=== PATIENT | female | born 1955 | race Caucasian/White ===

== ENCOUNTER 2016-11-21 03:12 | Inpatient (IN) | payer OTHER ==
[2016-11-21] VITALS (14 sets, daily range): BP systolic 67–125; BP diastolic 34–65; PULSE 88–115; RESP 12–22; O2SAT 76–98
[~2016-11-21] VITALS: Ht 170.2 cm; Wt 101.9 kg
[~2016-11-21 03:12] MED LIST: ALBU8.5H2 IH; ASPI-973 PO; Albuterol/Ipratropium NEB; FURO-129 PO; HYDR-4003 PO; HYDR25TA4 PO; INSU100I18 SUBQ; IPRA3AMP IH; LEVO150T5 PO; MS15TCR PO; MS30TCR PO; OMEP20TA24 PO; POTA-62 PO; PRE20 PO; SIMV80TA4 PO
--- NOTE | 2016-11-21 03:40 | ED.REPORT ---
HPI-Dyspnea / Wheezing Date of Service Nov 21, 2016 ED Provider: Blane Goldberg MD Pt is a 61 year old female with a hx of COPD, DM, HTN, hyperlipidemia, CABG and a hiatal hernia presenting to the ED complaining of dyspnea onset just prior to arrival. Her reports confusion, low O2 and low BP. Associated symptoms include headache and abdominal distention. Denies other symptoms at this time. Nursing Notes Stated Complaint: LOW BLOOD PRESSURE,LOW OXYGEN,CONFUSION Chief Complaint: Respiratory Distress Nursing Notes Reviewed: Yes Allergies: Coded Allergies: TAPE (Verified Allergy, Mild, Rash, 09/05/14) montelukast sodium (Verified Allergy, Mild, Agitation, 09/05/14) oxycodone HCl (Verified Allergy, Mild, Rash,Itching,, 09/05/14) PATIENT TAKES MORPHINE AND HYDROCODONE AT HOME Scheduled Amlodipine (Amlodipine) 2.5 Mg Tablet 2.5 MG PO DAILY Aspirin (Aspirin) 81 Mg Tablet.dr 81 MG PO DAILY Atorvastatin Calcium (Atorvastatin Calcium) 20 Mg Tablet 20 MG PO HS Hydrochlorothiazide (Hydrochlorothiazide) 25 Mg Tablet 50 MG PO DAILY Insulin Lispro (HumaLOG U100 Insulin Pen) 100 Unit/1 Ml Insuln.pen 10 UNIT SUBQ TID-INSULIN Blood Sugar Lispro Correction <151 0 units 151-175 1 unit 176-200 2 units 201-225 3 units 226-250 4 units 251-275 5 units 276-300 6 units 301-325 7 units 326-350 8 units 351-375 9 units 376-400 10 units >400 12 units Check blood sugars before meals and at bedtime. Use correction factor only before meals. Ipratropium/Albuterol Sulfate (Iprat-Albut 0.5-3(2.5) mg/3 mL Inhalant Soln) 3 Ml Ampul.neb 3 ML IH Q6 Levothyroxine (Levothyroxine) 175 Mcg Tablet 175 MCG PO DAILY Lisinopril (Lisinopril) 40 Mg Tablet 40 MG PO DAILY Morphine Sulfate ER (MS Contin) 15 Mg Tablet.er 15 MG PO QAM Morphine Sulfate ER (MS Contin) 30 Mg Tablet.er 30 MG PO Q12 Scheduled PRN ([Albuterol/Ipratropium]) 3 ML NEBU 3 ML NEB Q4 PRN PRN dyspnea Albuterol HFA (Proair HFA) 8.5 Gm Hfa.aer.ad 2 PUFFS IH Q4 PRN PRN For Shortness of Breath Hydrocodone-Acetaminophen 5-325 mg (Hydrocodone-Acetaminophen 5-325 mg) 1 Each Tablet 1 EACH PO Q8 PRN PRN For Pain Promethazine (Promethazine) 25 Mg Tablet 1 TABLET PO Q6H PRN PRN For Nausea/ Vomiting General Time Seen by MD: 03:29 Chief Complaint Shortness of breath Hx Obtained From: Patient, Spouse Arrived By: Walk-in Sudden in Onset?: Yes Onset Occurred: Just prior to arrival Symptom Duration: Since onset Quality: Painful Severity: Current: Mild Severity: Maximum: Moderate Recent Healthcare: No recent doctor visit, No recent hospitalization Similar Sx Previous: No Past Medical History Past Medical History Sleep apnea Hiatal hernia Reports: Asthma, COPD, Diabetes mellitus, GERD, Hyperlipidemia, Hypertension Past Surgical History Multiple knee repairs Reports: CABG, Hysterectomy Smoking History Current Every Day Smoker Social History Alcohol Use: "Social" Ambulatory Status Independent Review of Systems Review of Systems Note: Abdominal distention Constitutional: Denies: Weakness - generalized Respiratory: Reports: Shortness of breath Complete sys rev & neg: except as marked. GI: Denies: Vomiting Neurologic: Reports: Confusion, Headache Physical Exam Initial Vital Signs Vital Signs (First) Date Time Temp Pulse Resp B/P Pulse Ox O2 Delivery O2 Flow Rate FiO2 11/21/16 03:15 38.1 115 22 121/65 76 Room Air 11/21/16 03:45 4 Initial VS: Reviewed, Vital signs abnormal Head / Eyes: Atraumatic, Normocephalic, PERRL ENT: Mucous membranes moist, Conjunctiva normal, No scleral icterus Skin: Warm, Dry, No cyanosis Neurologic: Alert, Oriented, Nonfocal Psychiatric: Mood/affect normal, Behavior normal, Normal thought content General/Constitutional: Awake Neck: Atraumatic, Supple Respiratory / Chest: Breath sounds NL, Breath sounds = bilat, No respiratory distress, No rales, No rhonchi, No wheezing, No retractions, No stridor Cardiovascular: Heart rate NL, Regular rhythm, Heart sounds NL, Peripheral circulation NL Abdomen: Atraumatic, Non-tender Distended tympanitic abdomen. Non reducible umbilical hernia. Interpretation & Diagnostics Interpretation & Diagnostics: CT ABDOMEN AND PELVIS KUB: IMPRESSION: Constellation of findings highly concerning for acute Emphysematous choledochocystitis in the absence of recent instrumentation. Biliary dilation. Small amount of free fluid. Correlation with sonogram is advised. Other findings above. This report was transmitted to the emergency room at 11/21/2016 - 5:25:46 AM PDT. Lab Results Interpretation Result Diagram: 11/21/16 0340 11/21/16 0340 Test 11/21/16 03:40 White Blood Count 11.7th/mm3 (3.8-10.1) Red Blood Count 5.98mil/mm3 (3.90-5.20) Hemoglobin 14.8g/dL (12.0-15.6) Hematocrit 48.1% (35.0-46.0) Mean Corpuscular Volume 80.4fL (81-100) Mean Corpuscular Hemoglobin 24.7pg (27.0-35.0) Mean Corpuscular Hemoglobin Concent 30.8% (32.0-37.0) Red Cell Distribution Width 19.6% (12.3-15.4) Platelet Count ramesh/L (150-400) Neutrophils (%) (Auto) 88.9% (40-74) Lymphocytes (%) (Auto) 3.5% (14-46) Monocytes (%) (Auto) 4.3% (4-12) Eosinophils (%) (Auto) 2.6% (0-5) Basophils (%) (Auto) 0.2% (0-3) D-Dimer 5.90mg/L FEU (<0.50) Sodium Level 134mEq/L (134-144) Potassium Level 3.6mEq/L (3.5-5.2) Chloride Level 86mEq/L (97-108) Carbon Dioxide Level 28mmol/L (18-29) Blood Urea Nitrogen 82mg/dL (8-27) Creatinine 4.70mg/dL (0.57-1.00) Estimat Glomerular Filtration Rate 14mL/min (>59) Glucose Level 221mg/dL (60-99) Lactic Acid Level 1.3mmol/L (0.4-2.0) Calcium Level 9.4mg/dL (8.5-10.1) Magnesium Level 1.9mg/dL (1.6-2.6) Total Bilirubin 0.9mg/dL (0.0-1.2) Aspartate Amino Transf (AST/SGOT) 115U/L (0-50) Alanine Aminotransferase (ALT/SGPT) 60U/L (0-32) Alkaline Phosphatase 179U/L (25-165) Troponin T 0.010ug/L (0.0-0.011) Pro-B-Type Natriuretic Peptide 579pg/mL (0-287) Total Protein 7.8g/dL (6.4-8.4) Albumin 3.6g/dL (3.4-5.0) Hold Walker Top Tube Received (Received) Lab Results Interpretation: Elevated white blood count, acutely elevated BUN/creatinine, d-dimer 5.9, mildly elevated transaminases and nonfasting blood glucose. ECG Interpretation ECG Interpretation: Sinus tachycardia. Probable left atrial enlargement. Time: 03:27 Interpreted by: ED physician Abnormal Rate: 110 (109) X-Ray Chest Interpretation Chest Xray Interpretation: Normal. View: Portable, 1 view Interpretation / Wet Read by: Wet read ED physician Re-Eval/Medical Decision Med Decision/Clinical Course 61-year-old female who presents with hypotension, confusion, and hypoxemia. IV access was obtained, blood cultures done, and hydration started. Chest x-ray was negative for pneumonia. She was found to be in acute renal failure. Her d- dimer was elevated, but we were unable to do a chest angiogram because of her creatinine. Plain CT of the belly showed that she had severe acute cholecystitis. Her case was discussed with Dr. Nair, Dr. Aicha Pedraza, Dr. Venu Sheriff, Dr. See, and Dr. Carrillo. The patient will be admitted to the ICU and stabilized for operative repair. Re-Evaluation/Progress : Time of Eval: 05:49 Patient Status: Condition improved Re-Evaluation/Progress Note: Discussed CT results with the , and plan for surgery. He understands and agrees. Consultation #1: Referral / Consult Name: Ash Nair MD Call Returned at: 05:39 Note: GI. Call Dr. Pedraza the surgeon. Consultation #2: Referral / Consult Name: Juan Pedraza MD Consulted With: Surgeon Call Returned at: 05:43 Note: Admit her to CCU and she will need emergency surgery. Consultation #3: Referral / Consult Name: Christian See MD Consulted With: Hospitalist Call Returned at: 05:51 Director Of [employer]: Will see patient, Agrees with plan, Accepts admit Consultation #4: Referral / Consult Name: Ash Nair MD Call Returned at: 05:55 Note: GI. Discussed CT results. Consultation #5: Referral / Consult Name: Sean Mcneil MD Consulted With: Nephrology Call Returned at: 05:58 Director Of [employer]: Will see patient Consultation #6: Referral / Consult Name: Pal Ling MD Call Returned at: 06:13 Note: Radiologist. Clarifying that the major dx is acute cholecystitis. Counseled Regarding: Diagnosis, Lab results, Need for follow-up, When/why to return to ED Discharge & Departure Disposition: ADMITTED TO HOSPITAL Discharge Condition All VS Reviewed: Yes Condition: Improved Referrals: Mary Sierra PA-C (PCP) Crit Care Except Billable Proc Time Spent: 75-104 minutes Services Performed: Patient management by me, Time spent at bedside, Reviewing test results, Reviewing imaging, Discussing patient care, Documentation in record Critical Care Notes: Acutely ill patient with acute cellulitis with sepsis, acute renal failure, and elevated d-dimer. She was cultured, hydrated, and admitted to the CCU. Scribe Attestation Portions of this note were transcribed by Becka Capellan. I, Dr. Goldberg personally performed the history, physical exam and medical decision-making; I reviewed and confirmed the accuracy of the information in the transcribed note. Signed by: Ramon Farrell, 11/21/2016 and 0615. copies to: Mary Sierra PA-C, Howard L MD Nov 21, 2016 03:40 BECKA CAPELLAN Nov 21, 2016 03:49
[2016-11-21] MEDS ORDERED: Albuterol 2.5 mg/3 mL Inhalation Solution NEB ONE (03:47)
[2016-11-21] MEDS ORDERED: Albuterol-Ipratropium 3 mL Inhalation Solution ONE (03:47)
[2016-11-21 03:56] LABS: BASOPHILS % (AUTO) 0.2 % (0-3); EOSINOPHILS % (AUTO) 2.6 % (0-5); MONOCYTES % (AUTO) 4.3 % (4-12); Mean Corpuscular Hemoglobin 24.7 pg (27.0-35.0); Mean Corpuscular Volume 80.4 fL (81-100); NEUTROPHILS % (AUTO) 88.9 % (40-74)
[2016-11-21 04:23] LABS: TROPONIN T 0.01 ug/L (0.0-0.011)
[2016-11-21] MEDS ORDERED: 0.9% Sodium Chloride 1,000 ML IV ONE ×2 (04:35→06:10)
[2016-11-21 04:43] LABS: Magnesium 1.9 mg/dL (1.6-2.6)
[2016-11-21] MEDS ORDERED: Piperacillin-Tazo 3.375 Gm Inj 3.375 GM in Dextrose 5% Minibag Plus 50 ML IV ONE (05:40)
[2016-11-21] MEDS ORDERED: Alum-Mag Hydrox-Simeth 30 mL Suspension PO PRN (05:55)
[2016-11-21] MEDS ORDERED: Ondansetron 2 mg/mL 2 mL Inj IVPUSH PRN (05:55)
[2016-11-21] MEDS ORDERED: Polyethylene Glycol (PEG) 17 Gm Powder PO PRN (05:55)
[2016-11-21] MEDS ORDERED: Senna-Docusate 8.6-50 mg Tablet PO PRN (05:55)
--- NOTE | 2016-11-21 06:18 | DRSVH ---
PROCEDURE: CT ABDOMEN AND PELVIS WITHOUT CONTRAST ([id number]) INDICATIONS: abd distention and incarcerated hernia TECHNIQUE: Noncontrast 5 mm thick sections acquired from the diaphragms to the symphysis. 5 mm coronal and sagi ttal reformats were then performed. For radiation dose reduction, the following was used: automated exposure control, adjustment of mA and/or kV according to patient size. COMPARISON: None. FINDINGS: Image quality: Excellent. ABDOMEN: Lung bases: Lung base, there is scattered atelectasis. No pleural effusion. Solid organs: There is mild gas seen within the left lobe the liver, presumably pneumobilia versus p ortal venous gas. Unremarkable. There is distention of the gallbladder, with gallbladder wall thicken ing and pericholecystic inflammatory change. There is intraluminal and possible intramural gas, as we ll as cholelithiasis. Mild prominence of the extra hepatic bile ducts. There are adjacent vascular calcifications. The unen hanced pancreas and spleen are grossly unremarkable. Adrenal glands and kidneys also grossly unremark able. No hydronephrosis. Peritoneum and bowel: Unenhanced bowel loops demonstrate normal wall thickness and caliber. No free fluid or air. Normal appendix Nodes and vessels: No retroperitoneal or mesenteric adenopathy by size criteria. Aorta and inferior vena cava are normal in caliber. Miscellaneous: Fat-containing midline ventral hernia. PELVIS: Genitourinary: Bladder is decompressed. Miscellaneous: No inguinal hernias or adenopathy. Bones: No suspicious bony lesions. No vertebral body compression fractures. IMPRESSION: Findings consistent with acute emphysematous cholecystitis. Additionally, linear gas is seen within t he left lobe of the liver presumably pneumobilia (versus portal venous gas). Please correlate clinica lly. Cholelithiasis and pericholecystic inflammatory changes. Acute surgical consultation and managem ent is recommended. Fat containing midline ventral hernia. Critical findings were personally discussed by telephone with Dr. Goldberg in the emergency departmen t 11/21/16 0616 hours. Dictated by: Pal Ling M.D. on 11/21/2016 at 6:03 Approved by: Pal Ling M.D. on 11/21/2016 at 6:17
[2016-11-21] MEDS ORDERED: Glucose 40% Oral Gel 15 Gm Tube PO PRN (06:30)
[2016-11-21] MEDS ORDERED: Dextrose 10% 250 ML IV PRN ×2 (06:30→07:15)
--- NOTE | 2016-11-21 06:52 | NUR ---
Admit note: Pt arrived at 1835 per cart from ED. Pt is awake and alert with signs of SOB. Pt was moved over to bed with the use of a slide board. Monitor was applied showing sinus tach, and low BP with spo2 90-92% with 5L/M O2 per oxymask.
[2016-11-21] MEDS ORDERED: AMLO2.5T PO (07:07)
[2016-11-21] MEDS ORDERED: LISI40TA PO (07:07)
[2016-11-21] MEDS ORDERED: ATOR20TA65 PO (07:10)
[2016-11-21] MEDS ORDERED: PROM25TA14 PO (07:10)
[2016-11-21] MEDS ORDERED: LEVO175T5 PO (07:10)
[2016-11-21] MEDS ORDERED: Insulin Human REGular Inj 100 UNIT in 0.9% Sodium Chloride-Pha MIX 100 ML IV SCH (07:13)
[2016-11-21] MEDS ORDERED: Phenylephrine Inj 20,000 MCG in 0.9% Sodium Chloride 248 ML IV PRN (07:15)
[2016-11-21] MEDS ORDERED: Sodium Chloride LOK Flush 10 mL Syringe IVFLUSH PRN ×2 (07:15)
[2016-11-21] MEDS ORDERED: Norepineph 8,000 mCg/250 mL NS 8,000 MCG in IV Premix 1 EACH IV SCH (07:25)
--- NOTE | 2016-11-21 07:35 | DRSVH ---
PROCEDURE: X-RAY CHEST ONE VIEW, PORTABLE ([id number]) INDICATIONS: SOB TECHNIQUE: One view of the chest was acquired. COMPARISON: [facility], , CHEST 1VW (PORTABLE), 09/05/2014, 12:23. FINDINGS: Surgical changes and devices: vision specialist leads are seen over the chest. Lungs and pleura: No pleural effusions or pneumothorax. Lungs are clear. Mediastinum: Mediastinal contours appear normal. Heart size is normal. Bones and chest wall: No suspicious bony lesions. Overlying soft tissues appear unremarkable. IMPRESSION: Acute disease is seen in the portable upright chest. Dictated by: Jonatan Varner M.D. on 11/21/2016 at 7:29 Approved by: Jonatan Varner M.D. on 11/21/2016 at 7:34
--- NOTE | 2016-11-21 07:54 | PCM.HPMED ---
Subjective Date of Service Nov 21, 2016 Primary Provider: Admitting Physician: Christian See MD Primary Care Physician: Mary Sierra PA-C Attending Physician: Christian See MD Admit Status: From the Emergency Department, Admit to Yellow Team Chief Complaint: 61-year-old woman with T2DM, HTN, CKD, COPD, JOSEFA/CPAP presents with acute cholecystitis, septic shock History of Present Illness: She was in her usual state of health until 1 week ago. She experienced a self- limited gastrointestinal disturbance with nausea. Saw her primary care doctor. Took Tylenol and this resolved. One day prior to admission she experienced acute right upper quadrant pain and encephalopathy. This was associated with dyspnea. At the time of admission she is unable to give history. Her reports no cough, chest pain or other symptoms. Review of Systems: Patient is unable to comply with ROS Allergies Coded Allergies: TAPE (Verified Allergy, Mild, Rash, 09/05/14) montelukast sodium (Verified Allergy, Mild, Agitation, 09/05/14) oxycodone HCl (Verified Allergy, Mild, Rash,Itching,, 09/05/14) PATIENT TAKES MORPHINE AND HYDROCODONE AT HOME insulin lispro (Verified Allergy, Unknown, reports injection site reactions, 11/21/16) Home Medications Home medications: Albuterol when necessary Amlodipine 2.5 mg daily Aspirin 81 mg daily Atorvastatin 20 mg daily Hydrochlorothiazide 50 mg daily Hydrocodone 5/325 every 8 when necessary Lispro insulin 10 units 3 times a day DuoNeb inhaler every 6 hours when necessary Levothyroxine 175 g daily Lisinopril 40 mg daily MS Contin 15-30 mg daily Promethazine 25 mg by mouth when necessary PMH # Type II diabetes mellitus # Hypertension # CK D - history of short-term hemodialysis with a ZACK in the past # Obstructive airway disease # Chronic pain and opioid dependent # Obesity Family History does not know Social History Hx Alcohol Use: Yes (occasional) Hx Substance Use: No Hx Tobacco Use: No Smoking Status: Current Every Day Smoker Living Arrangement: with Family Exam Vital Signs Vital Sign - Last Date Time Temp Pulse Resp B/P Pulse Ox O2 Delivery O2 Flow Rate FiO2 11/21/16 07:16 37.2 101 17 109/37 93 OxyMask 6.00 Intake and Output 11/20/16 11/20/16 11/21/16 Cumulative From/Thru 15:00 23:00 07:00 11/21/16 03:15 - 11/21/16 06:50 Intake Total 2000 ml 2000 ml Balance 2000 ml 2000 ml Intake IV Total 2000 ml 2000 ml Exam General: Obese, plethoric, confused woman with mildly labored breathing HEENT: sclerae anicteric, oral mucosa moist Neck: Supple, no JVD Chest: Diffuse wheezing, no focal rales Cardiac: S1S2, no murmur Abdomen: BS reduced, non-tender Extremities: no edema; Neuro: A&O, cranial nerves symmetric, motor strength 5/5, coordination normal Lab and Diagnostics Result Diagram: 11/21/16 0340 11/21/16 0340 X-Rays, CTs and MRIs PROCEDURE: CT ABDOMEN AND PELVIS WITHOUT CONTRAST ([id number]) FINDINGS: ABDOMEN: Lung bases: Lung base, there is scattered atelectasis. No pleural effusion. Solid organs: There is mild gas seen within the left lobe the liver, presumably pneumobilia versus portal venous gas. Unremarkable. There is distention of the gallbladder, with gallbladder wall thickening and pericholecystic inflammatory change. There is intraluminal and possible intramural gas, as well as cholelithiasis. IMPRESSION: Findings consistent with acute emphysematous cholecystitis. Additionally, linear gas is seen within the left lobe of the liver presumably pneumobilia ( versus portal venous gas). Please correlate clinically. Cholelithiasis and pericholecystic inflammatory changes. Acute surgical consultation and management is recommended. Fat containing midline ventral hernia. Dictated by: Pal Ling M.D. on 11/21/2016 at 6:03 PROCEDURE: X-RAY CHEST ONE VIEW, PORTABLE ([id number]) FINDINGS: Surgical changes and devices: Right internal central line is in place with the tip at the junction of the superior vena cava and right atrium. Lungs and pleura: No pleural effusions or pneumothorax. Lungs are clear. Mediastinum: Mediastinal contours appear normal. Heart size is normal. Bones and chest wall: No suspicious bony lesions. Overlying soft tissues appear unremarkable. IMPRESSION: No acute disease is seen in the supine chest. Dictated by: Jonatan Varner M.D. on 11/21/2016 at 9:16 . 12-lead ECG 11/21/16 03:27 Sinus tachycardia rate 110, normal conduction intervals, QTC 450, normal axes. No ST or T-wave changes Assessment & Plan 61-year-old woman with diabetes hypertension CKD presents with severe septic shock due to acute emphysematous cholecystitis. # Sepsis: Series criteria heart rate 115, blood pressure 69/34, respiratory rate 22, temperature 38.; Organ dysfunction with encephalopathy, hypertension and acute renal failure. - Aggressive fluids and pressors to maintain mean arterial pressure - Monitor urine output with Escoto catheter to maintain greater than 0.5 mL-KG- hour - Zosyn for acute cholecystitis - Surgery and interventional radiology consults for acute cholecystitis # Cardiac: Hemodynamics & Rhythm - sinus tachycardia with hypotension due to septic shock. Receive 2 L NS in ED, SBP subsequently 65-70. Subsequently SBP 90-110 on aggressive fluids and norepinephrine 5 MCG/min - Central line placement and care - Norepinephrine - Aggressive fluid resuscitation - Telemetry monitoring - Maintain MAP greater than 65 mmHg # Respiratory function - likely underlying obstructive airway disease, reactive airway disease, septic shock shunt, with developing diffuse infiltrates possibly ARDS secondary to sepsis. Adequate oxygenation on 6 L oxygen mask. - Oxygen support as needed - Check ABG, BPAP if hypercarbic # Lines, I/O's, fluids and electrolytes - - CVC placed - BMP twice a day; reflexive electrolyte management # Renal - AK with CKD. Unclear her baseline serum creatinine at this time. - Daily BMP - Goal urine output greater than 0.5 mL/KG/MR # Hematological - - Daily CBC # GI, diabetes, and nutritional status - Nothing by mouth since 11/20/16 - Maintain nothing by mouth and advance of GI procedure; - Non-DKA insulin drip # Neurological - metabolic encephalopathy secondary to sepsis - Monitor clinically # Infectious disease status - - Zosyn for acute cholecystitis - Await blood cultures # Pain status - - Monitor clinically # Venous thromboembolism prophylaxis: - Hold in advance of probable interventional procedure today - Initiate heparin after hemostasis # GI prophylaxis: - IV famotidine every 12 # Goals of care, expected hospital duration, discharge planning: - Admitted to inpatient status with expectation of care greater than 48 hours - Patient is full code - She was evaluated by general surgery and anesthesia and deemed to be too unstable for emergent cholecystectomy - Due to unavailability of interventional radiology percutaneous cholecystostomy at today, we will pursue transfer to [facility] Pain Evaluation: Adequate Pain Control VTE Prophylaxis: SCDs Resuscitation Status: CPR: Attempt Resuscitation Time spent 75 minutes critical care time Didier Carnes MD Nov 21, 2016 07:53
[2016-11-21] MEDS ORDERED: Insulin LISPRO 300 Unit/3 mL Inj SUBQ SCH (08:00)
--- NOTE | 2016-11-21 08:13 | PCM.PROC ---
Procedure Note Date of Service: Nov 21, 2016 Pre Procedure Diagnosis: Indication: septic shock Procedure: Central venous catheter Provider and Polygraph Examiner: Kristian Arce Indication for Procedure: Septic shock Findings: Placement of triple-lumen central venous catheter to 17 cm at the right internal jugular vein under direct ultrasound visualization. Maximal barrier precautions performed. Confirmed via chest x-ray. Procedural Analgesia: 1% lidocaine Kristian Arce DO Nov 21, 2016 08:13
[2016-11-21] MEDS: Lactated Ringer's 1,000 ML IV SCH ×2 (08:14→11:56)
[2016-11-21 08:16] LABS: INR 0.95 ratio
--- NOTE | 2016-11-21 08:22 | CONS ---
[address] [address] CONSULTATION REPORT PATIENT: JOSHUA MENG : 1955 MR#: [id number] ADMIT: 11/21/2016 JOB ID: [id number] DATE OF SERVICE: 11/21/2016 CHIEF COMPLAINT: Abdominal pain, nausea and vomiting. HISTORY OF PRESENT ILLNESS: The patient is a 61-year-old female with multiple comorbid conditions who presented to the emergency department last night due to confusion, shortness of breath and hypotension. According to the , she has been not feeling well for the past week or so. She has been having some nausea and vomiting the last few days and some reports of fever. There is no report of diarrhea. The patient had gone to a doctor's appointment yesterday at the [facility] but nothing significant was identified. The patient has been noted to have some right-sided abdominal pain for the past week or so. The patient was noted to be hypotensive in the emergency department with systolic in the 60s to 70s. The patient was found to have acute renal failure with a creatinine at 4.7. Due to the abdominal pain a CAT scan of the abdomen and pelvis was obtained last night which suggests findings of acute emphysematous cholecystitis. The patient is currently in the ICU with fluid resuscitation, and IV antibiotics have been started. PAST MEDICAL HISTORY: COPD, insulin-dependent diabetes, hypertension, sleep apnea, obesity, hiatal hernia, hypertension, osteoarthritis, multiple knee surgeries, hysterectomy. MEDICATIONS AT HOME: Include hydrocodone, albuterol, amlodipine, baby aspirin, atorvastatin, hydrochlorothiazide, insulin, levothyroxine, lisinopril and promethazine. ALLERGIES: 1. OXYCODONE. 2. MONTELUKAST SODIUM. SOCIAL HISTORY: The patient was a smoker. She lives on [address]. She is , and she has two children. FAMILY HISTORY: Not contributory to the current clinical situation. REVIEW OF SYSTEMS: Positive for the right-sided abdominal pain, nausea and vomiting, and reports of fever. PHYSICAL EXAMINATION: The patient is currently in the intensive care unit. She has her eyes closed. She does awake to voice and was able to state that she was at [facility]. She does appear to be lethargic. Her BMI is 35.2. Her temperature now is 37.6, blood pressure 75/39, pulse is 103, respirations 13. Head is normocephalic, atraumatic. Neck is supple. Heart is regular rate. Lungs are clear. Abdomen is obese. There is a palpable supraumbilical ventral hernia containing fat. There is nonspecific tenderness with palpation in the right lateral abdomen. The left side is benign. There are no peritoneal signs on the left side. Extremities show no clubbing and no cyanosis. Neurologically, patient is lethargic but she does open her eyes to voice and was able to answer a few simple questions. LABORATORY EXAMINATION: Last night showed a white blood count of 11.7, hematocrit 48.1, platelet count is not reported due to clumping. Sodium was 134, potassium 3.6, BUN was 82, creatinine 4.70. Total bilirubin 0.9, AST 115, ALT of 60, alkaline phosphatase of 179. Her lactate was 1.3, and her D-dimer was 5.9. ASSESSMENT AND PLAN: This is a 61-year-old female who is critically ill in the intensive care unit. The patient is hypotensive and febrile and with a presumptive diagnosis of acute emphysematous cholecystitis. A central line will be placed to help with resuscitation. We will repeat her CBC and coags. The patient should be started on IV fluids and IV antibiotics. I will discuss the case with the interventional radiologist to see if a percutaneous cholecystostomy tube is possible. I believe the emergency department doctor has discussed the case with the Gastroenterology service as well. I will also discuss the case with our anesthesiologist to see if she is a surgical candidate for cholecystectomy. If percutaneous cholecystostomy tube is not possible here by IR and if she is not a surgical candidate given her clinical instability, then she should be transferred to a higher level of care. HIEN
[2016-11-21] MEDS ORDERED: Heparin 5,000 Unit/mL Inj SUBQ SCH (08:30)
[2016-11-21 09:01] LABS: BASOPHILS % (AUTO) 0.1 % (0-3); EOSINOPHILS % (AUTO) 1.6 % (0-5); MONOCYTES % (AUTO) 10.3 % (4-12); Mean Corpuscular Hemoglobin 24.9 pg (27.0-35.0); NEUTROPHILS % (AUTO) 83.5 % (40-74); Platelet Count 167 bil/L (150-400)
[2016-11-21] MEDS ORDERED: SYMINH INHALATION (09:04)
[2016-11-21] MEDS ORDERED: LIRA0.6P2 SUBQ (09:04)
[2016-11-21] MEDS ORDERED: INSU100I13 SUBQ (09:04)
--- NOTE | 2016-11-21 09:17 | NUR ---
Admit nurse: Admit/med rec completed with 's assistance, pt not responsive at this time. reports that pt has injection site reactions to Lispro, but uses Lantus and Victoza, dosages unknown.
--- NOTE | 2016-11-21 09:19 | DRSVH ---
PROCEDURE: X-RAY CHEST ONE VIEW, PORTABLE ([id number]) INDICATIONS: CENTRAL LINE PLACEMENT TECHNIQUE: One view of the chest was acquired. COMPARISON: [facility], CR, XR CHEST 1VW (PORTABLE), 11/21/2016, 3:22. FINDINGS: Surgical changes and devices: Right internal central line is in place with the tip at the junction of the superior vena cava and right atrium. Lungs and pleura: No pleural effusions or pneumothorax. Lungs are clear. Mediastinum: Mediastinal contours appear normal. Heart size is normal. Bones and chest wall: No suspicious bony lesions. Overlying soft tissues appear unremarkable. IMPRESSION: No acute disease is seen in the supine chest. Dictated by: Jonatan Varner M.D. on 11/21/2016 at 9:16 Approved by: Jonatan Varner M.D. on 11/21/2016 at 9:17
--- NOTE | 2016-11-21 10:22 | PCM.DIMED ---
Discharge Instructions Date of Service Nov 21, 2016 Dates of Hospitalization Nov 21, 2016 at 06:24 Discharge Diagnosis Discharge Diagnosis Acute cholecystitis, septic shock, acute respiratory failure with hypoxia, acute kidney injury with chronic kidney disease, type II diabetes mellitus, JOSEFA with CPAP COPD Patient Instructions Patient Instructions Review will be transferred to [facility] for further care of your acute cholecystitis. It is important that your family members bring your CPAP device to the [facility] today. Didier Carnes MD Nov 21, 2016 10:21
--- NOTE | 2016-11-21 10:29 | PCM.DC.MED ---
Discharge Summary Date of Service Nov 21, 2016 Dates of Hospitalization Date of Hospital Admission Nov 21, 2016 at 06:24 Date of Discharge: Nov 21, 2016 Providers: Admitting Physician: Christian See MD Primary Care Physician: Mary Sierra PA-C Attending Physician: Christian See MD Diagnosis at Time of Discharge Diagnosis at Time of Discharge Acute cholecystitis, septic shock, acute respiratory failure with hypoxia, acute kidney injury with chronic kidney disease, type II diabetes mellitus, JOSEFA with CPAP COPD Consultations General surgery, Dr. Dominic Sheriff Procedures XRay, CTs & MRIs PROCEDURE: CT ABDOMEN AND PELVIS WITHOUT CONTRAST ([id number]) FINDINGS: ABDOMEN: Lung bases: Lung base, there is scattered atelectasis. No pleural effusion. Solid organs: There is mild gas seen within the left lobe the liver, presumably pneumobilia versus portal venous gas. Unremarkable. There is distention of the gallbladder, with gallbladder wall thickening and pericholecystic inflammatory change. There is intraluminal and possible intramural gas, as well as cholelithiasis. IMPRESSION: Findings consistent with acute emphysematous cholecystitis. Additionally, linear gas is seen within the left lobe of the liver presumably pneumobilia ( versus portal venous gas). Please correlate clinically. Cholelithiasis and pericholecystic inflammatory changes. Acute surgical consultation and management is recommended. Fat containing midline ventral hernia. Dictated by: Pal Ling M.D. on 11/21/2016 at 6:03 PROCEDURE: X-RAY CHEST ONE VIEW, PORTABLE ([id number]) FINDINGS: Surgical changes and devices: Right internal central line is in place with the tip at the junction of the superior vena cava and right atrium. Lungs and pleura: No pleural effusions or pneumothorax. Lungs are clear. Mediastinum: Mediastinal contours appear normal. Heart size is normal. Bones and chest wall: No suspicious bony lesions. Overlying soft tissues appear unremarkable. IMPRESSION: No acute disease is seen in the supine chest. Dictated by: Jonatan Varner M.D. on 11/21/2016 at 9:16 . ECG 12 Lead 11/21/16 03:27 Sinus tachycardia rate 110, normal conduction intervals, QTC 450, normal axes. No ST or T-wave changes Brief History History of Present Illness (per admission note): 61-year-old woman with T2DM, HTN, CKD, COPD, JOSEFA/CPAP presents with acute cholecystitis, septic shock. She was in her usual state of health until 1 week ago. She experienced a self-limited gastrointestinal disturbance with nausea. Saw her primary care doctor. Took Tylenol and this resolved. One day prior to admission she experienced acute right upper quadrant pain and encephalopathy. This was associated with dyspnea. At the time of admission she is unable to give history. Her reports no cough, chest pain or other symptoms. Past medical history: # Type II diabetes mellitus # Hypertension # CKD - history of short-term hemodialysis with [facility] in the past # Obstructive airway disease - on CPAP # Chronic pain and opioid dependent # Obesity Home medications prior to this admission: Albuterol when necessary Amlodipine 2.5 mg daily Aspirin 81 mg daily Atorvastatin 20 mg daily Hydrochlorothiazide 50 mg daily Hydrocodone 5/325 every 8 when necessary Lispro insulin 10 units 3 times a day DuoNeb inhaler every 6 hours when necessary Levothyroxine 175 g daily Lisinopril 40 mg daily MS Contin 15-30 mg daily Promethazine 25 mg by mouth when necessary . Hospital Course # Sepsis: Series criteria heart rate 115, blood pressure 69/34, respiratory rate 22, temperature 38.; Organ dysfunction with encephalopathy, hypertension and acute renal failure. - Aggressive fluids and pressors to maintain mean arterial pressure - Monitor urine output with Escoto catheter to maintain greater than 0.5 mL-KG- hour - Zosyn for acute cholecystitis - Surgery and interventional radiology consults for acute cholecystitis # Cardiac: Hemodynamics & Rhythm - sinus tachycardia with hypotension due to septic shock. Receive 2 L NS in ED, SBP subsequently 65-70. Subsequently SBP 90-110 on aggressive fluids and norepinephrine 5 MCG/min - Central line placement and care - Norepinephrine - Aggressive fluid resuscitation - Telemetry monitoring - Maintain MAP greater than 65 mmHg # Respiratory function - likely underlying obstructive airway disease, reactive airway disease, septic shock shunt, with developing diffuse infiltrates possibly ARDS secondary to sepsis. Adequate oxygenation on 6 L oxygen mask. - Oxygen support as needed - Check ABG, BPAP if hypercarbic # Lines, I/O's, fluids and electrolytes - - CVC placed - BMP twice a day; reflexive electrolyte management # Renal - AK with CKD. Unclear her baseline serum creatinine at this time. - Daily BMP - Goal urine output greater than 0.5 mL/KG/MR # Hematological - - Daily CBC # GI, diabetes, and nutritional status - Nothing by mouth since 6/16/17 - Maintain nothing by mouth and advance of GI procedure; - Non-DKA insulin drip # Neurological - metabolic encephalopathy secondary to sepsis - Monitor clinically # Infectious disease status - - Zosyn for acute cholecystitis - Await blood cultures # Pain status - - Monitor clinically # Venous thromboembolism prophylaxis: - Hold in advance of probable interventional procedure today - Initiate heparin after hemostasis # GI prophylaxis: - IV famotidine every 12 # Goals of care, expected hospital duration, discharge planning: - Admitted to inpatient status with expectation of care greater than 48 hours - Patient is full code - She was evaluated by general surgery and anesthesia and deemed to be too unstable for emergent cholecystectomy - Due to unavailability of interventional radiology percutaneous cholecystostomy at [facility] today, we will pursue transfer to [facility] Current inpatient medications: Lactated Ringer's 1,000 ml @ 200 mls/hr Q5H IV Last administered on 11/21/16 08:14; Admin Dose 200 MLS/HR; Start 11/21/16 at 05:53 Ondansetron HCl 4 to 8 mg Q4H PRN IVPUSH; Start 11/21/16 at 05:55 Senna 2 tablet BID PRN PO; Start 11/21/16 at 05:55 Al Hydrox/Mg Hydrox/Simethicone 30 ml Q6H PRN PO; Start 11/21/16 at 05:55 Polyethylene Glycol 17 gm DAILY PRN PO; Start 11/21/16 at 05:55 Heparin Sodium (Porcine) 5000 unit 5,000 unit Q8 SUBQ Last administered on 08:43; Admin Dose 5,000 UNIT; Start 11/21/16 at 08:30 Piperacillin Sod/ Tazobactam Sod/ Dextrose/Water 50 ml @ 12.5 mls/hr Q12H IV; Start 11/21/16 at 18:00 Insulin Human Lispro Nutritional Dose to be given pr... [facility] SUBQ; Start at 08:00; Stop 11/21/16 at 08:00; Status DC Dextrose/Water 250 ml @ 750 mls/hr ONCE PRN IV; Start 11/21/16 at 06:30 Phenylephrine HCl 34694 mcg/Sodium Chloride 250 ml @ 38.21 mls/ hr Q6H33M PRN IV; Start 11/21/16 at 07:15; Stop 11/21/16 at 07:23; Status DC Insulin Human Regular 100 unit/ Sodium Chloride 101 ml @ 0 mls/hr Q0M IV Last administered on 11/21/16 08:43; Admin Dose 2 MLS/HR; Start 11/21/16 at 07:13 Norepinephrine/ Premix 250 ml @ 9.55 mls/hr Q24H IV Last administered on 08:13; Admin Dose 9.55 MLS/HR; Start 11/21/16 at 07:25 Albuterol/ Ipratropium 3 ml Q4 NEB; Start 11/21/16 at 12:30 Exam Vital Signs (Last) Date Time Temp Pulse Resp B/P Pulse Ox O2 Delivery O2 Flow Rate FiO2 11/21/16 08:45 Supplement Oxygen 11/21/16 07:16 37.2 101 17 109/37 93 6.00 Exam General: Obese, plethoric, confused woman with mildly labored breathing HEENT: sclerae anicteric, oral mucosa moist Neck: Supple, no JVD Chest: Diffuse wheezing, no focal rales Cardiac: S1S2, no murmur Abdomen: BS reduced, non-tender Extremities: no edema; Neuro: A&O, cranial nerves symmetric, motor strength 5/5, coordination normal . Test 11/21/16 03:40 11/21/16 07:15 11/21/16 08:50 11/21/16 10:12 D-Dimer 5.90mg/L FEU (<0.50) Sodium Level 134mEq/L (134-144) Potassium Level 3.6mEq/L (3.5-5.2) Chloride Level 86mEq/L (97-108) Carbon Dioxide Level 28mmol/L (18-29) Blood Urea Nitrogen 82mg/dL (8-27) Creatinine 4.70mg/dL (0.57-1.00) Estimat Glomerular Filtration Rate 14mL/min (>59) Glucose Level 221mg/dL (60-99) Lactic Acid Level 1.3mmol/L (0.4-2.0) Calcium Level 9.4mg/dL (8.5-10.1) Magnesium Level 1.9mg/dL (1.6-2.6) Total Bilirubin 0.9mg/dL (0.0-1.2) Aspartate Amino Transf (AST/SGOT) 115U/L (0-50) Alanine Aminotransferase (ALT/SGPT) 60U/L (0-32) Alkaline Phosphatase 179U/L (25-165) Troponin T 0.010ug/L (0.0-0.011) Pro-B-Type Natriuretic Peptide 579pg/mL (0-287) Total Protein 7.8g/dL (6.4-8.4) Albumin 3.6g/dL (3.4-5.0) Hold Walker Top Tube Received (Received) Prothrombin Time 10.2sec (8.1-12.5) Prothromb Time International Ratio 0.95ratio White Blood Count 20.8th/mm3 (3.8-10.1) Red Blood Count 5.18mil/mm3 (3.90-5.20) Hemoglobin 12.9g/dL (12.0-15.6) Hematocrit 43.0% (35.0-46.0) Mean Corpuscular Volume 83.0fL (81-100) Mean Corpuscular Hemoglobin 24.9pg (27.0-35.0) Mean Corpuscular Hemoglobin Concent 30.0% (32.0-37.0) Red Cell Distribution Width 19.1% (12.3-15.4) Platelet Count 167bil/L (150-400) Neutrophils (%) (Auto) 83.5% (40-74) Lymphocytes (%) (Auto) 3.9% (14-46) Monocytes (%) (Auto) 10.3% (4-12) Eosinophils (%) (Auto) 1.6% (0-5) Basophils (%) (Auto) 0.1% (0-3) Microbiology Results Blood cultures 2 pending 11/21/16 MRSA nasal swab is negative . Discharge Medications Discharge Medications Amlodipine (Amlodipine) 2.5 Mg Tablet 2.5 MG PO DAILY (Reported) Aspirin (Aspirin) 81 Mg Tablet.dr 81 MG PO DAILY (Reported) Atorvastatin Calcium (Atorvastatin Calcium) 20 Mg Tablet 20 MG PO HS (Reported) Budesonide/Formoterol 160-4.5 mcg Inh (Symbicort 160-4.5 mcg Inh) 120 Puff Inhaler 2 PUFFS INHALATION BID (Reported) Hydrochlorothiazide (Hydrochlorothiazide) 25 Mg Tablet 50 MG PO DAILY (Reported ) Levothyroxine (Levothyroxine) 175 Mcg Tablet 175 MCG PO DAILY (Reported) Lisinopril (Lisinopril) 40 Mg Tablet 40 MG PO DAILY (Reported) Morphine Sulfate ER (MS Contin) 15 Mg Tablet.er 15 MG PO QAM (Reported) Morphine Sulfate ER (MS Contin) 30 Mg Tablet.er 30 MG PO Q12 (Reported) As needed ([Albuterol/Ipratropium]) 3 ML NEBU 3 ML NEB Q4 PRN PRN dyspnea Prescribed by: OLENA OSMAN, Albuterol HFA (Proair HFA) 8.5 Gm Hfa.aer.ad 2 PUFFS IH Q4 PRN PRN For Shortness of Breath (Reported) Hydrocodone-Acetaminophen 5-325 mg (Hydrocodone-Acetaminophen 5-325 mg) 1 Each Tablet 1 EACH PO Q8 PRN PRN For Pain (Reported) Promethazine (Promethazine) 25 Mg Tablet 1 TABLET PO Q6H PRN PRN For Nausea/ Vomiting (Reported) Miscellaneous Medications Insulin Glargine (Lantus U100 Solostar Insulin Pen) 100 Unit/1 Ml Insuln.pen Unknown Dose SUBQ (Reported) Liraglutide (Victoza 3-Joo) 0.6 Mg/0.1 Ml Pen.injctr Unknown Dose SUBQ (Reported ) Followup Plan Disposition: ACLS transfer to [facility], Accepting physician Dr. Rod, ICU room D- 745 Patient Instructions Review will be transferred to [facility] for further care of your acute cholecystitis. It is important that your family members bring your CPAP device to the [facility] today. Time spent 35 minutes copies to: Mary Sierra PA-C, Jeffrey W MD Nov 21, 2016 10:29
--- NOTE | 2016-11-21 10:41 | ABG ---
DateTimeAnalyzed 10:29:22 -_ pH ____7.151 - 7.350 7.450 pCO2 ___89.6__ -mmHg 35.0 45.0 pO2 126 -mmHg 70.0 100 HCO3- ___31.2__ -mmol/L 22.0 26.0 ABE ____1.5__ -mmol/L -2.0 2.0 tHb ___12.9__ -g/dL 12.0 18.0 O2Hb ___94.0__ -% 95.0 COHb ____4.7__ -% 1.5 MetHb ____0.3__ -% 0.4 1.5 sO2 ___98.9__ -% FIO2 ___21.0__ -% Drawn By RC - Date/Time Notified____ 10:40:00 -_ Spontaneous_RR 14 -b/min Liter_Flow ___12.00_ -L/min Oxygen Device 1 __OXYMASK - Notified By RC - Notified Whom GEOVANNY CARTAGENA,RN - K+ ____4.1__ -mmol/L tO2 ___17.2__ -Vol% Reinaldo test _Positive -
[2016-11-21 10:47] LABS: COLOR,URINE DARK YELLOW (YELLOW)
[2016-11-21 10:49] LABS: APPEARANCE,URINE CLOUDY (CLEAR,HAZY); OCCULT BLOOD,URINE NEGATIVE (NEGATIVE); UROBILINOGEN,URINE NORMAL (NORMAL)
[2016-11-21] MEDS ORDERED: Dexmedetomidine 400 mCg/100 mL NS Premix IV ONE (11:26)
--- NOTE | 2016-11-21 12:12 | DRSVH ---
PROCEDURE: X-RAY CHEST ONE VIEW, PORTABLE ([id number]) INDICATIONS: POST INTUBATION TECHNIQUE: One view of the chest was acquired. COMPARISON: None. FINDINGS: Surgical changes and devices: Endotracheal tube is approximately 2 cm above the lito, the lito is difficult to exactly localize. There is a right internal jugular central line present. Cardiac monit or leads are seen over the chest. Lungs and pleura: No pleural effusions or pneumothorax. Lungs are clear of focal infiltrates.. Mediastinum: Mediastinal contours appear normal. Heart size is normal. Bones and chest wall: No suspicious bony lesions. Overlying soft tissues appear unremarkable. IMPRESSION: Endotracheal tube to be 2 cm above the lito. Consider pulling it back one or 2 cm. Dictated by: Jonatan Varner M.D. on 11/21/2016 at 12:09 Approved by: Jonatan Varner M.D. on 11/21/2016 at 12:10
[2016-11-21] MEDS ORDERED: Albuterol-Ipratropium 3 mL Inhalation Solution NEB SCH (12:30)
[2016-11-21] MEDS ORDERED: Succinylcholine Chloride 20 mg/mL 5 mL Inj ONE (12:40)
--- NOTE | 2016-11-21 13:42 | CONS ---
[address] [address] CONSULTATION REPORT PATIENT: JOSHUA MENG : 1955 MR#: [id number] ADMIT: 11/21/2016 JOB ID: [id number] DATE OF SERVICE: 11/21/2016 NEPHROLOGY CONSULTATION: REQUESTING PHYSICIAN: Dr. Carlos A Carnes REASON FOR CONSULTATION: Management of abnormal kidney function test. The patient was seen prior to being transferred to [facility]. CHIEF COMPLAINT: Abdominal pain, nausea and vomiting. PRESENT ILLNESS: This is a 57-year-old lady with significant past medical history of type 2 diabetes, hypertension, obesity, obstructive sleep apnea, COPD, dyslipidemia who presented to the emergency department with a complaint of shortness of breath and abdominal pain. The patient is now being intubated and sedated. I have gathered the history from the medical record. According to the ED note, the patient came to the hospital with a complaint of sudden onset of dyspnea and confusion according to the . She also had history of headache, abdominal distention. The initial vitals showed a temperature of 38.1, pulse 115, respiratory rate 22, blood pressure 121/65, O2 sat was 76% on room air. Initially the patient received 2 L of normal saline in the emergency department and subsequently started on norepinephrine 5 mcg/minute. CT of the abdomen and pelvis without contrast performed showed acute emphysematous cholecystitis. The patient later on was transferred to ICU. Her respiratory status became worsened and she was intubated. Zosyn 3.375 g IV q.12 hours was initiated. Her initial BMP showed sodium of 134, potassium of 3.6, chloride of 86, bicarbonate of 28, BUN 82, creatinine 4.7, lactic acid 1.3. The patient was evaluated by surgical team. Apparently the patient is too unstable for emergent cholecystectomy. Other option is to perform percutaneous cholecystostomy. However, due to unavailability of Interventional Radiology here at [facility], the patient will be transferred to [facility] for a higher level of care. PAST MEDICAL HISTORY: 1. Type 2 diabetes. 2. Hypertension. 3. History of acute kidney injury, required short-term hemodialysis in the past. 4. COPD. 5. Obstructive sleep apnea. 6. Obesity. 7. Dyslipidemia. 8. Hypothyroid. 9. Opioid dependent. FAMILY HISTORY: Unable to obtain. SOCIAL HISTORY: The patient is a current every day smoker. He drinks occasionally. ALLERGIES: TAPE, INSULIN, LISPRO, MONTELUKAST, OXYCODONE. MEDICATIONS: 1. Albuterol. 2. Amlodipine 2.5 mg daily. 3. Aspirin 81 mg daily. 4. Atorvastatin 20 mg daily. 5. Hydrochlorothiazide 50 mg daily. 6. Hydrocodone 5/325 every 8 hours as needed. 7. Insulin 10 units t.i.d. 8. DuoNeb inhaler every 6 hours as needed. 9. Levothyroxine 175 mcg daily. 10. Lisinopril 40 mg daily. 11. MS-Contin 15-30 mg daily. 12. Promethazine 25 mg as needed. PHYSICAL EXAMINATION: Vitals: Temperature 37.2, pulse 88, respiratory rate 20, blood pressure 125/58, O2 sat 97% with FiO2 80%. General appearance: Intubated, sedated. HEENT: Atraumatic, dry mucous membranes. No pallor. No jaundice. No JVD. No lymphadenopathy. No thyroid enlargement. Heart: Regular rate and rhythm. Normal S1, S2. Tachycardic. Lungs: Wheezing bilaterally. Intubated on full ventilator support. Abdomen: Soft, obese. Decreased bowel sounds. Umbilical hernia noted. Extremities: No significant edema. Positive for varicose veins bilaterally. LABORATORY: UA: Specific gravity 1.023, pH 5.0, protein 30, RBCs 0-2, WBCs 0-5. No cast appreciated. WBC 20.8, hemoglobin 12.9. Sodium 134, potassium 3.6, chloride 86, bicarbonate 28, BUN 82, creatinine 4.7, glucose 212. Lactic acid 1.3. Calcium 9.4, magnesium 1.9. Total bilirubin 0.9. AST 115, ALT 60, alkaline phos 179, troponin 0.010. ProBNP 579, albumin 3.6. INR is 0.95. ASSESSMENT: 1. Acute kidney injury. Initial serum creatinine of 4.7. Her baseline creatinine was 0.8 from our record in September 2014. The etiology of acute kidney injury is likely due to sepsis and ATN. 2. Severe sepsis. 3. Acute respiratory failure. 4. Acute emphysematous cholecystitis. 5. History of hypertension. 6. History of diabetes. 7. Chronic obstructive pulmonary disease. 8. Obesity. 9. Sleep apnea. PLAN: 1. Per renal standpoint, I see no indication for emergent hemodialysis. We will continue aggressive fluid resuscitation. Continue vasopressors to keep mean arterial pressure above 65 mmHg. 2. Avoid nephrotoxins. 3. Adjust medication according to her estimated GFR. Thank you for allowing me to participate in the care of your patient. We will monitor along with you. HIEN
--- NOTE | 2016-11-21 15:30 | NUR ---
Shift and transfer note Assumed patients care this morning at shift change. Patient was hypotensive with poor IV access. SBP 60s-70s with MAP in low to high 40s- MD aware but unwilling at the time to start pressor through peripheral IV. LR 1L bolus open was given per MD verbal order witch increased patients SBP to mid-80s and MAP to mid-50s. RT IJ central line was placed by ED physician and levophed was started with some improvement of BP. patient required additional 500ml LR bolus X1. ABG at 1024; ph-7.151, pco2 89.6, po2 126 and hco3at 31.2- MD was made aware. Patient was obtunded and not appropriate for BIPAP- decision was made to intubate. Patient was intubated today at 1100 by anesthesiologist cone machine feeder- please refer to RT documentation foe ventilator settings. Post intubation patient stabilized and required lover amounts of levophed to maintain adequate BP. Left radial A-line was placed by anesthesiologist at the time as well. OG and Escoto catheter were placed as per protocol. Patient was transferred to [facility] Surgical ICU before 1300 today. Report was called to the receiving RN at 1310 and prior to the patient arriving there.
[2016-11-21] MEDS ORDERED: Piperacillin-Tazo 3.375 Gm Inj 3.375 GM in Dextrose 5% Minibag Plus 50 ML IV SCH (18:00)
--- NOTE | 2016-11-21 21:54 | PROCED ---
[address] [address] PROCEDURE NOTE PATIENT: JOSHUA MENG : 1955 MR#: [id number] ADMIT: 11/21/2016 JOB ID: [id number] DATE OF SERVICE: 11/21/2016 PREOPERATIVE DIAGNOSIS(ES): POSTOPERATIVE DIAGNOSIS(ES): SURGEON: Quintin Miranda MD PROCEDURE: Endotracheal intubation and arterial catheterization. DETAILS OF PROCEDURE: I was consulted by the managing gumming machine operator for intubation in the setting of acute respiratory failure due to severe sepsis. On arrival to the department, the patient was somnolent and minimally responsive. The patient was preoxygenated with 100% oxygen. IV induction was done with 5 mg of midazolam and 100 mg of succinylcholine. The patient was then gently bag ventilated with an oral airway in place. Intubation was done with MAC 3 blade, showing a grade 1 view and 8.0 endotracheal tube was passed easily and confirmed with imagery. ET tube was then secured at 23 cm at the lips and subsequently placed on the ventilator. The patient was left in the care of the managing gumming machine operator for radiographic confirmation of endotracheal tube position. PROCEDURE #2: Arterial catheterization. I was asked to place an arterial catheter by the managing gumming machine operator for titration of vasoactive drips in setting of severe sepsis. The procedure was performed on the left wrist. The left wrist was sterilely prepped and draped. Using sterile technique, the artery was cannulated with a 20-gauge Arrow catheter. The wire was easily advanced and there was no resistance to the placement of the catheter either. Upon withdrawal of the needle and wire, there was brisk arterial return. A sterile dressing was then applied over the catheter.
== END 2016-11-21 12:41 | disposition short-term general hospital (02) | DRG 871 ==
LOC: SED 03:12 → CCU 06:24
PROVIDERS: ADMIT Hospitalist; ATTEND Hospitalist
PROC: 05HM33Z Insertion of Infusion Device into Right Internal Jugular Vein, Percutaneous Approach (ICD-10-PCS; principal; 2016-11-21)
PROC: B543ZZA Ultrasonography of Right Jugular Veins, Guidance (ICD-10-PCS; 2016-11-21)
PROC: 4A033R1 Measurement of Arterial Saturation, Peripheral, Percutaneous Approach (ICD-10-PCS; 2016-11-21)
PROC: 0BH17EZ Insertion of Endotracheal Airway into Trachea, Via Natural or Artificial Opening (ICD-10-PCS; 2016-11-21)
PROC: 5A1935Z Respiratory Ventilation, Less than 24 Consecutive Hours (ICD-10-PCS; 2016-11-21)
PROC: 03HC33Z Insertion of Infusion Device into Left Radial Artery, Percutaneous Approach (ICD-10-PCS; 2016-11-21)
DX: A41.9 Sepsis, unspecified organism (principal); G93.41 Metabolic encephalopathy; J96.01 Acute respiratory failure with hypoxia; R65.21 Severe sepsis with septic shock; N17.9 Acute kidney failure, unspecified; K81.0 Acute cholecystitis; Z95.5 Presence of coronary angioplasty implant and graft; Z79.4 Long term (current) use of insulin; Z79.82 Long term (current) use of aspirin; F17.210 Nicotine dependence, cigarettes, uncomplicated; N18.9 Chronic kidney disease, unspecified; E11.9 Type 2 diabetes mellitus without complications; G47.33 Obstructive sleep apnea (adult) (pediatric); I12.9 Hypertensive chronic kidney disease with stage 1 through stage 4 chronic kidney disease, or unspecified chronic kidney disease; J44.9 Chronic obstructive pulmonary disease, unspecified; J45.998 Other asthma; I95.9 Hypotension, unspecified

== ENCOUNTER 2016-12-09 12:09 | Inpatient (IN) | payer OTHER ==
[2016-12-09] VITALS (12 sets, daily range): BP systolic 83–110; BP diastolic 33–67; PULSE 76–109; RESP 15–22; O2SAT 90–98
[~2016-12-09] VITALS: Ht 170.2 cm; Wt 99.0 kg
[~2016-12-09 12:09] MED LIST changes: +AMLO2.5T PO; +ATOR20TA65 PO; -FURO-129 PO; +INSU100I13 SUBQ; -INSU100I18 SUBQ; -IPRA3AMP IH; -LEVO150T5 PO; +LEVO175T5 PO; +LIRA0.6P2 SUBQ; +LISI40TA PO; -OMEP20TA24 PO; -POTA-62 PO; -PRE20 PO; +PROM25TA14 PO; -SIMV80TA4 PO; +SYMINH INHALATION
--- NOTE | 2016-12-09 12:27 | ED.REPORT ---
HPI-General Illness Date of Service Dec 09, 2016 ED Provider: Serafin Leyva MD The pt is a 61 y/o female w/ a hx of HTN, diabetes, hyperlipidemia, asthma, COPD , acute cholecystis and acute renal insufficiency presenting to the ED complaining of lower abdominal tenderness onset yesterday. She also describes bilateral hip tenderness which causes her "shooting" pain. The pt is also experiencing fatigue, decreased urine output, as well as loss of weight. Denies fever, chest pain, vomiting, diarrhea, or dysuria. The pt was hospitalized 11/21/16 due to acute cholecystis and acute renal insufficiency. She also reports her BP being low, with a systolic of 90. Nursing Notes Stated Complaint: KIDNEY'S (SENT BY ) Chief Complaint: General Complaint Nursing Notes Reviewed: Yes ([place] not reconciled) Allergies: Coded Allergies: TAPE (Verified Allergy, Mild, Rash, 09/05/14) montelukast sodium (Verified Allergy, Mild, Agitation, 09/05/14) oxycodone HCl (Verified Allergy, Mild, Rash,Itching,, 09/05/14) PATIENT TAKES MORPHINE AND HYDROCODONE AT HOME insulin lispro (Verified Allergy, Unknown, reports injection site reactions, 11/21/16) Scheduled Aspirin (Aspirin) 81 Mg Tablet. 81 MG PO DAILY Atorvastatin Calcium (Atorvastatin Calcium) 20 Mg Tablet 20 MG PO HS Budesonide/Formoterol 160-4.5 mcg Inh (Symbicort 160-4.5 mcg Inh) 120 Puff Inhaler 2 PUFFS INHALATION BID Hydrochlorothiazide (Hydrochlorothiazide) 50 Mg Tablet 50 MG PO DAILY Insulin Glargine (Lantus U100 Solostar Insulin Pen) 100 Unit/1 Ml Insuln.pen 65 UNITS SUBQ BID Insulin Lispro (HumaLOG U100 Insulin Pen) 100 Unit/1 Ml Insuln.pen UNITS SUBQ TIDAC sliding scale insulin Levothyroxine (Levothyroxine) 175 Mcg Tablet 175 MCG PO DAILY Lisinopril (Lisinopril) 40 Mg Tablet 20 MG PO DAILY Morphine Sulfate ER (MS Contin) 15 Mg Tablet.er 15 MG PO QAM Morphine Sulfate ER (MS Contin) 30 Mg Tablet.er 30 MG PO Q12 Omeprazole Magnesium (Prilosec Otc) 20 Mg Tablet.dr 20 MG PO DAILY Scheduled PRN Albuterol HFA (Proair HFA) 8.5 Gm Hfa.aer.ad 2 PUFFS IH Q4 PRN PRN For Shortness of Breath Hydrocodone-Acetaminophen 5-325 mg (Hydrocodone-Acetaminophen 5-325 mg) 1 Each Tablet 1 EACH PO TID PRN PRN For Pain Liraglutide (Victoza 3-Joo) 0.6 Mg/0.1 Ml Pen.injctr 0.3 ML SUBQ DAILY PRN PRN BS>175 Promethazine (Promethazine) 25 Mg Tablet 25 MG PO QID PRN PRN For Nausea/ Vomiting General Time Seen by MD: 12:20 Chief Complaint Abdominal pain (Lower) Hx Obtained From: Patient Arrived By: Walk-in Onset Occurred: Yesterday Symptom Duration: Since onset Recent Healthcare: Recent doctor visit, Recent hospitalization Past Medical History Past Medical History Sleep apnea Hiatal hernia Acute cholecystitis - s/p biliary drain at [facility] 11/2016 (awaiting outpatient surgery) Acute renal failure Reports: Asthma, COPD, Diabetes mellitus, GERD, Hyperlipidemia, Hypertension Past Surgical History Multiple knee repairs Reports: CABG, Hysterectomy Smoking History Current Every Day Smoker Social History Alcohol Use: "Social" Ambulatory Status Independent Review of Systems Bilateral hip tenderness Full Review of Systems Constitutional: Reports: Fatigue, Denies: Fever Cardiovascular: Denies: Chest pain GI: Reports: Abdominal pain, Denies: Diarrhea, Vomiting Female: Reports: Urination decreased, Denies: Dysuria Endocrine: Reports: Weight loss Complete sys rev & neg: except as marked. Physical Exam Vital Signs Vital Signs Date Time Temp Pulse Resp B/P Pulse Ox O2 Delivery O2 Flow Rate FiO2 12/09/16 13:40 80 15 94/33 90 Simple Mask 12/09/16 13:17 76 17 83/57 93 Room Air 12/09/16 12:11 37.2 81 16 88/57 93 Room Air Initial VS: Reviewed, Vital signs abnormal General/Constitutional: Awake, Alert, Not toxic appearing Appearance / Presentation: Positive: Obese Head / Eyes: Atraumatic, Normocephalic ENT: Atraumatic, Airway patent Mouth: Positive: Mucous membranes dry Neck: Atraumatic, Supple, Full range of motion, No JVD Respiratory / Chest: Breath sounds = bilat, No respiratory distress Mild bronchospasms which are baseline Cardiovascular: Heart rate NL, Regular rhythm, Heart sounds NL, Peripheral circulation NL Abdomen: Soft Percutaneous biliary tube Reducible umbilical hernia No peritonitis Upper Extremities Upper Extremity / MS: Atraumatic, Full range of motion Lower Extremity / Pelvis / MS: Atraumatic, Full range of motion Skin: Atraumatic, Color NL, No rash, Warm, Dry Interpretation & Diagnostics Lab Results Interpretation Result Diagram: 12/09/16 1250 12/09/16 1250 Test 12/09/16 12:50 White Blood Count 11.9th/mm3 (3.8-10.1) Red Blood Count 5.06mil/mm3 (3.90-5.20) Hemoglobin 12.9g/dL (12.0-15.6) Hematocrit 40.2% (35.0-46.0) Mean Corpuscular Volume 79.4fL (81-100) Mean Corpuscular Hemoglobin 25.5pg (27.0-35.0) Mean Corpuscular Hemoglobin Concent 32.1% (32.0-37.0) Red Cell Distribution Width 18.8% (12.3-15.4) Platelet Count 255bil/L (150-400) Neutrophils (%) (Auto) 83.4% (40-74) Lymphocytes (%) (Auto) 11.2% (14-46) Monocytes (%) (Auto) 3.2% (4-12) Eosinophils (%) (Auto) 1.4% (0-5) Basophils (%) (Auto) 0.6% (0-3) Sodium Level 137mEq/L (134-144) Potassium Level 6.6mEq/L (3.5-5.2) Chloride Level 101mEq/L (97-108) Carbon Dioxide Level 18mmol/L (18-29) Blood Urea Nitrogen 66mg/dL (8-27) Creatinine 5.15mg/dL (0.57-1.00) Estimat Glomerular Filtration Rate 12mL/min (>59) Glucose Level 87mg/dL (60-99) Lactic Acid Level 1.3mmol/L (0.4-2.0) Calcium Level 7.8mg/dL (8.5-10.1) Phosphorus Level 8.9mg/dL (2.5-4.9) Magnesium Level 1.2mg/dL (1.6-2.6) Total Bilirubin 0.3mg/dL (0.0-1.2) Aspartate Amino Transf (AST/SGOT) 16U/L (0-50) Alanine Aminotransferase (ALT/SGPT) 8U/L (0-32) Alkaline Phosphatase 79U/L (25-165) Total Protein 6.9g/dL (6.4-8.4) Albumin 3.3g/dL (3.4-5.0) Procalcitonin 0.24ng/mL (0.00-0.08) Lab Results Interpretation: CBC mild leukocytosis CMP positive hyperkalemia, possibly worsening renal failure Lactic acid normal Cultures 2 pending Re-Eval/Medical Decision Med Decision/Clinical Course This is a 61-year-old female referred in after having labs drawn on Wednesday to return today and were notable for hyperkalemia with a potassium of 6. This is a patient with some recent acute kidney injury, he developed sepsis and cholecystitis and was transferred to [place] where she had cutaneous drainage in the gallbladder, with a plan for outpatient surgical referral. She been feeling okay since getting out of the hospital over a week ago, but noted her blood pressures were low-SHE was tolerating well and went in for a follow- up visit with her PCP on Wednesday, and labs were drawn. She was advised to stop one of her blood pressure medicines then, but is continued or others. Her blood pressures have been continued to be low in the 90s, but she is otherwise been okay. Reports she feels a little tired but has no other specific complaints. Initial arrival her blood pressures 80, but she actually appears perky and energetic and does not appear toxic or ill. She does appear clinically dry with dry mucous membranes. She has audible bronchospasm, but states is typical with her asthma and that her breathing feels at baseline. She has a percutaneous drain in the right upper quadrant that is draining, but is nontender in her abdomen is obese, but nontender no signs of an acute surgical abdomen. A venous blood gas with a potassium was obtained was elevated at 6.4, EKG reveals marginal T-wave peaked but no QRS widening, the patient received albuterol, Kayexalate, bicarbonate, and IV hydration. She did not receive insulin/dextrose because insulin is listed as an allergy, and I have not had a chance to clarify the nature that allergy. Labs are notable for worsening renal failure with an elevated beating creatinine and confirmed potassium of 6.6. Nephrology is been consulted, and after the patient received the first liter like the patient receive 150 mL per hour. The patient will need to have her lisinopril and hydrochlorothiazide held. Her blood pressures are improved, and she appears well. She has a marginal white count, but again does not have signs of ede sepsis clinically, her lactic acid is normal, and I think the hypotension is not from a primary infectious etiology. I am attempting discussed the case with the on-call surgeon so that he can follow the percutaneous drainage of the gallbladder for the medicine team as the patient mildly somewhat unable to make the appointment arranged since she has the next few days down a problem for recheck, but this is not the primary issue. Source of Hx: Old records Differential Diagnosis: Positive: Diabetes mellitus, Negative: Abdominal pain, Acute coronary syndrome, Allergies, Neutropenia, Pneumonia, Seizure disorder, Syncope Counseled Regarding: Diagnosis, Lab results, Need for admission Discharge & Departure Primary Impression: Hypokalemia Additional Impressions: Renal failure Hypotension Hypotension type: unspecified hypotension type Qualified Code: I95.9 - Hypotension, unspecified Disposition: ADMITTED TO HOSPITAL Discharge Condition All VS Reviewed: Yes Condition: Stable Referrals: Mary Sierra PA-C (PCP) Crit Care Except Billable Proc Time Spent: 30-74 minutes Services Performed: Patient management by me, Time spent at bedside, Reviewing test results, Reviewing imaging, Discussing patient care, Documentation in record, Other Scribe Attestation Portions of this note were transcribed by Dwight Young. I, Dr. Leyva personally performed the history, physical exam and medical decision-making; I reviewed and confirmed the accuracy of the information in the transcribed note. Signed by : Ramon Vides, 12/09/16 and 1240. copies to: Mary Sierra PA-C, Matthew F MD Dec 09, 2016 12:27 Dwight Young Dec 09, 2016 12:34
[2016-12-09] MEDS ORDERED: 0.9% Sodium Chloride 1,000 ML IV ONE (12:30)
[2016-12-09] MEDS ORDERED: Sodium Polystyrene Sulfonate 0.25 Gm/mL 500 mL Suspension PO ONE (13:00)
[2016-12-09] MEDS ORDERED: Sodium Bicarb (50 mEq) 8.4% 1 mEq/mL 50 mL Syringe IVPUSH ONE (13:00)
[2016-12-09] MEDS ORDERED: Albuterol 2.5 mg/3 mL Inhalation Solution NEB ONE (13:00)
[2016-12-09 13:07] LABS: BASOPHILS % (AUTO) 0.6 % (0-3); EOSINOPHILS % (AUTO) 1.4 % (0-5); MONOCYTES % (AUTO) 3.2 % (4-12); Mean Corpuscular Hemoglobin 25.5 pg (27.0-35.0); Mean Corpuscular Volume 79.4 fL (81-100); NEUTROPHILS % (AUTO) 83.4 % (40-74); Platelet Count 255 bil/L (150-400)
--- NOTE | 2016-12-09 13:10 | ABG ---
DateTimeAnalyzed 13:00:34 -_ pH ____7.269 - pCO2 ___47.4__ -mmHg pO2 ___36.0__ -mmHg HCO3- ___21.7__ -mmol/L 22.0 26.0 ABE ___-5.0__ -mmol/L tHb ___13.0__ -g/dL O2Hb ___61.0__ -% COHb ____7.1__ -% 1.5 MetHb ____0.1__ -% sO2 ___65.8__ -% FIO2 ___21.0__ -% Drawn By LAB - Date/Time Notified____ 13:10:00 -_ Notified By GJ - Notified Whom ___DR. LIZ - K+ ____6.4__ -mmol/L tO2 ___11.2__ -Vol% Reinaldo test N/A -
[2016-12-09] MEDS ORDERED: INSU100I18 SUBQ (13:31)
[2016-12-09] MEDS ORDERED: OMEP20TA24 PO (13:31)
[2016-12-09] MEDS ORDERED: HYDR50TA3 PO (13:31)
[2016-12-09 13:38] LABS: Phosphorus 8.9 mg/dL (2.5-4.9)
[2016-12-09 13:51] LABS: Magnesium 1.2 mg/dL (1.6-2.6)
[2016-12-09] MEDS ORDERED: Magnesium Sulf 4 Gm/100 mL H2O 4 GM in IV Premix 1 EACH IV ONE (14:20)
[2016-12-09] MEDS: 0.9% Sodium Chloride 1,000 ML IV SCH ×2 (14:30→20:54)
[2016-12-09] MEDS ORDERED: Ondansetron 2 mg/mL 2 mL Inj IVPUSH PRN (15:15)
[2016-12-09] MEDS ORDERED: Polyethylene Glycol (PEG) 17 Gm Powder PO PRN (15:15)
[2016-12-09] MEDS ORDERED: Alum-Mag Hydrox-Simeth 30 mL Suspension PO PRN (15:15)
[2016-12-09] MEDS ORDERED: LIRAGLUTIDE SUBQ PRN (17:30)
--- NOTE | 2016-12-09 17:50 | PCM.HPMED ---
Subjective Date of Service Dec 09, 2016 Primary Provider: Admitting Physician: Andrew Colon MD Primary Care Physician: Mary Sierra PA-C Attending Physician: Andrew Colon MD Chief Complaint: Abdominal tenderness and increased fatigue, dizziness History of Present Illness: Mrs. Pedraza is a 61 year old female with past medical history significant for hypertension, diabetes mellitus type 2, hyperlipidemia, COPD and recent gall bladder stent with drain for acute cholecystitis that presented to the Emergency Department on 12/09 with complaints of increased fatigue, dizziness, and lower quadrant abdominal pain for the past 24h. She says the pain is positional and rates it as a dull ache 4/10 in intensity. She denies any fever/ chills, nausea/vomiting/diarrhea, chest pain or shortness of breath. She adds that her blood pressure has been running low in the 90-100's and reecntly saw her PCP, Mary Sierra, who discontinued Lisinopril and did a BMP which revealed hyperkalemia of 6.0 and was told to come to the Emergency Department today. Of note, she had a recent admission for acute cholecystitis complicated by concurrent sepsis and acute renal failure where she was transferred to [place] where they put a gallbladder stent and drain. It stopped draining today and she is worried it might be plugged. Allergies Coded Allergies: TAPE (Verified Allergy, Mild, Rash, 09/05/14) montelukast sodium (Verified Allergy, Mild, Agitation, 09/05/14) oxycodone HCl (Verified Allergy, Mild, Rash,Itching,, 09/05/14) PATIENT TAKES MORPHINE AND HYDROCODONE AT HOME insulin lispro (Verified Allergy, Unknown, reports injection site reactions, 11/21/16) Home Medications Daily Aspirin (Aspirin) 81 Mg Tablet. 81 MG PO DAILY Atorvastatin Calcium (Atorvastatin Calcium) 20 Mg Tablet 20 MG PO HS Budesonide/Formoterol 160-4.5 mcg Inh (Symbicort 160-4.5 mcg Inh) 120 Puff Inhaler 2 PUFFS INHALATION BID Hydrochlorothiazide (Hydrochlorothiazide) 50 Mg Tablet 50 MG PO DAILY Insulin Glargine (Lantus U100 Solostar Insulin Pen) 100 Unit/1 Ml Insuln.pen 65 UNITS SUBQ BID Insulin Lispro (HumaLOG U100 Insulin Pen) 100 Unit/1 Ml Insuln.pen UNITS SUBQ TIDAC sliding scale insulin Levothyroxine (Levothyroxine) 175 Mcg Tablet 175 MCG PO DAILY Lisinopril (Lisinopril) 40 Mg Tablet 20 MG PO DAILY Morphine Sulfate ER (MS Contin) 15 Mg Tablet.er 15 MG PO QAM Morphine Sulfate ER (MS Contin) 30 Mg Tablet.er 30 MG PO Q12 Omeprazole Magnesium (Prilosec Otc) 20 Mg Tablet.dr 20 MG PO DAILY Scheduled PRN Albuterol HFA (Proair HFA) 8.5 Gm Hfa.aer.ad 2 PUFFS IH Q4 PRN PRN For Shortness of Breath Hydrocodone-Acetaminophen 5-325 mg (Hydrocodone-Acetaminophen 5-325 mg) 1 Each Tablet 1 EACH PO TID PRN PRN For Pain Liraglutide (Victoza 3-Joo) 0.6 Mg/0.1 Ml Pen.injctr 0.3 ML SUBQ DAILY PRN PRN BS>175 Promethazine (Promethazine) 25 Mg Tablet 25 MG PO QID PRN PRN For Nausea/ Vomiting PMH Sleep apnea Hiatal hernia Acute cholecystitis with biliary drain placed at [facility] 11/2016 Acute renal failure Asthma COPD Diabetes mellitus GERD Hyperlipidemia Hypertension Surgical History Gallbladder stent and drain at [facility] 11/2016 Multiple Right knee repairs Hysterectomy CABG Lipoma removals Family History 2 sisters and 3 brothers with Diabetes Mellitus type 2, Hypertension, Hyperlipidemia, Obesity Mother: Alive at 81 with CHF Father: of Heart Failure in his 40's due to alcoholism Social History Hx Alcohol Use: Yes (Social) Hx Substance Use: No Hx Tobacco Use: Yes Smoking Status: Current Every Day Smoker Living Arrangement: with Family Exam Vital Signs Vital Sign - Last Date Time Temp Pulse Resp B/P Pulse Ox O2 Delivery O2 Flow Rate FiO2 12/09/16 16:36 Supplement Oxygen 12/09/16 16:23 107 12/09/16 16:14 36.7 22 88/51 90 Exam General: Unkept elderly woman laying in bed in NAD HEENT: NCAT, PERRLA, EOMI. Membranes pink but dry. Neck: Supple with full ROM, no JVD or thyromegaly CV: Tachycardic but regular rhythm, no murmurs/rubs/gallops Pulm: Coarse breath sounds throughout but no wheezes/rales/rhonchi Abd: Soft, obese. Drainage site is clear of erythema or purulence. There is a large area of tenderness, redness, and warmth below her umbilicus extending toward her sides bilaterally also without purulence. Extremities: Prominent vasculature and hard, dry, discolored patches of skin. No cyanosis, edema, clubbing. Neuro: A&Ox3. CN 2-12 intact, muscle strength normal in all extremities. No focal deficits. Psych: Normal mood and affect. Lab and Diagnostics Result Diagram: 12/09/16 1250 12/09/16 1250 Microbiology Blood cultures negative 12-lead ECG EKG in ED reports a rate of 76, NSR with T wave abnormalities (slightly peaked) Assessment & Plan Mrs. Pedraza is a 61 year old female with past medical history significant for hypertension, diabetes mellitus type 2, hyperlipidemia, COPD and recent gall bladder stent with drain for acute cholecystitis that presented to the Emergency Department on 12/09 with complaints of increased fatigue, dizziness, and lower quadrant abdominal pain for the past 24h. She says the pain is positional and rates it as a dull ache 4/10 in intensity. She denies any fever/ chills, nausea/vomiting/diarrhea, chest pain or shortness of breath. She adds that her blood pressure has been running low in the 90-100's and reecntly saw her PCP, Mary Sierra, who discontinued Lisinopril and did a BMP which revealed hyperkalemia of 6.0 and was told to come to the Emergency Department today. Hyperkalemia, present on admission, acute. Ongoing. - Patient feeling dizzy, fatigue, recent poor oral intake - Potassium was 6.6 in Emergency Department - Given Kayexalate, Albuterol but not insulin due to questionable allergy - Dr. Prasad of Nephrology consulted, appreciate her expertise: 1L NS @ 150/hr Hold Lisinopril Acute Renal Failure, present on admission, acute. Ongoing. - Creatinine 5.15 on admission - Dr. Prasad of Nephrology consulted, appreciate her expertise: Another 1L NS @ 150/hr for a total of 2L Renal Ultrasound pending Chest XR pending - Avoid nephrotoxic meds Lower Quadrant Abdominal Cellulitis, present on admission, acute. Ongoing. - Patient reports occasional swelling of the area but has noticed recent redness , swelling, tenderness - No evidence of abscess formation, no fevers/chills, WBC just above normal limits - Started Ancef 0.5mg every 12 hours (renally adjusted dose) - Continue to monitor Acute Cholecystitis with recent Gallbladder drain placed, present on admission. Ongoing. - Patient was septic on last admission and transferred to [facility] where they input a stent and drain as she was too unstable for cholescystectomy - Drain has had output daily since then, no output for ~1 day - No abdominal pain, erythema, tenderness around drain site - Lactic Acid 1.3 - Dr. Daniel consulted from the Emergency Department, appreciate his input Hypertension, present on admission, chronic. Ongoing. - Patient was taken off Lisinopril recently by her PCP - Recent blood pressures at home have been 90-100's - Aggressive fluid resuscitation per Dr. Prasad above Diabetes Mellitus Type 2, present on admission. Stable. - Patient reports recent glucose control, 86 on admission - A1C ordered, pending - Continue home insulin regimen - Medium dose correctional scale Asthma, present on admission, chronic. Stable. - Continue home medications COPD, present on admission, chronic. Stable. - Continue home medications GERD, present on admission, chronic. Stable. - Continue home omeprazole (converted by pharmacy) Hyperlipidemia - Continue home statin Acetominophen for mild pain, fever, headache as needed. Bowel regimen as needed. VTE prophylaxis: SubQ heparin Patient Status: The patient is admitted under inpatient status with length of stay likely > 2 midnights due to severity of presenting symptoms, complexity of work up and treatment plan, and risk of adverse events. Pain Evaluation: Adequate Pain Control GI Prophylaxis: Proton Pump Inhibitor VTE Prophylaxis: Sub-Q Heparin (Unfractionated) Resuscitation Status: CPR: Attempt Resuscitation Attending Statement The patient was seen and examined together with Dr. Mulligan on 12/09/2016 and I agree with the history, exam and plan as outlined in the note above. . copies to: Mary Sierra PA-C, Jeffery S DO Dec 09, 2016 17:50 Andrew Colon MD Dec 10, 2016 18:06
--- NOTE | 2016-12-09 18:11 | CONS ---
[address] [address] CONSULTATION REPORT PATIENT: JOSHUA MENG : 1955 MR#: [id number] ADMIT: 12/09/2016 JOB ID: [id number] DATE OF SERVICE: 12/09/2016 CHIEF COMPLAINT: Cholecystostomy tube. HISTORY OF PRESENT ILLNESS: I am asked to evaluate the patient at the request of Dr. Serafin Leyva in the emergency department. The patient is known to me as she was actually scheduled to undergo excision of bilateral back lipomas on November 27, 2016. I met her in my clinic on November 05 for a preoperative appointment. At the time of her scheduled surgery, surgery was canceled because she was admitted to the hospital the week before in septic shock and was transferred to [facility] in [place]. It seems somewhat unclear what her ultimate hospital course was, but it seems that the source of septic shock was presumed to be cholecystitis and a percutaneous cholecystostomy tube was placed. She also developed acute renal failure on top of her chronic kidney disease. She was discharged from [facility] on Wednesday. She is back in the hospital today after she presented to the emergency department with a low blood pressure with a systolic of 90, as well as bilateral hip pains, fatigue, and decreased urine output. She has been admitted to the hospitalist service. I am being consulted for management of her cholecystostomy tube. Initially I told the hospitalist team that I would not plans to manage her cholecystostomy tube but would provide some initial recommendations; but, on further discussion with the patient, she wants to transfer her surgical care regarding the gallbladder to me and have me be the surgeon to ultimately remove her gallbladder. She is somewhat worried because the volume of drainage over the past two days has decreased from its initial amount of drainage. The drainage has been fairly clear green bile. She has not had fevers, jaundice, nausea, vomiting, diarrhea. PAST MEDICAL HISTORY: Hyperlipidemia, degenerative disk disease, peripheral venous insufficiency, hypothyroidism, chronic sinusitis, obstructive sleep apnea, COPD, diabetes mellitus, fatty liver disease, tobacco abuse, migraine headaches, restless legs syndrome, congestive heart failure, GERD. PAST SURGICAL HISTORY: Right toe surgery, excision of recurrent right back lipoma, left leg varicose vein ablation, vaginal hysterectomy. MEDICATIONS: At home include amlodipine, Imodium, aspirin 81, atorvastatin, Humalog, hydrochlorothiazide, ipratropium, Lantus, levothyroxine, lisinopril, MS Contin, [place], Prilosec, ProAir, Symbicort, Victoza. ALLERGIES: TAPE, INSULIN LISPRO, MONTELUKAST, OXYCODONE. SOCIAL HISTORY: She is a smoker and has smoked for 35 years. She denies alcohol and illicit drug use. FAMILY HISTORY: Includes alcoholism, coronary artery disease, breasts cancer, colon cancer, prostate cancer. REVIEW OF SYSTEMS: A 10-point review of systems is positive for fatigue, decreased urine output, weight loss, and is otherwise negative. PHYSICAL EXAMINATION: Body mass index 32.8, temperature 36.7, pulse 102, blood pressure 88/51, saturation 90% on room air. In general, she is resting in bed, in no acute distress. HEENT: Sclerae are anicteric. Mucous membranes are moist. Neck: No jugular venous distention. Chest: Clear. Heart: Regular rate and rhythm. No murmurs. Abdomen: Obese, but soft. Nontender, nondistended. She has a 3 cm partially reducible umbilical hernia. There is a cholecystostomy tube in the right upper abdomen with fairly clear green bile in the bag. There is no erythema of the abdominal wall around the drainage tube. There is diffuse erythema of the abdominal pannus consistent with cellulitis. Extremities: No edema. Neuro: No deficits. LABORATORIES: White count is 11.9, hematocrit 40.2, platelets 255. Creatinine 5.15, BUN 66, potassium 6.6. Lactate 1.3. Albumin 3.3, bilirubin 0.3, AST 16, ALT 8, alkaline phosphatase 79. Procalcitonin 0.24. IMAGING: None. ASSESSMENT AND PLAN: A 61-year-old woman with a cholecystostomy tube placed two weeks ago for septic shock presumed of a gallbladder origin. I told her that I would not recommend removing the gallbladder until at least 6-8 weeks after her original episode. The cholecystostomy tube should remain in place to gravity drainage. Decreased output of drainage is not particularly concerning. General Surgery will not follow her closely for her tube while she is in the hospital, but I recommend when she is discharged that she follow up with me in general surgery clinic in 2-3 weeks to talk about timing and logistics of cholecystectomy.
[2016-12-09] MEDS ORDERED: Glucose 40% Oral Gel 15 Gm Tube PO PRN (18:25)
[2016-12-09] MEDS: HYDROcodone-APAP 5-325 mg Tablet PO PRN (18:34)
--- NOTE | 2016-12-09 18:43 | CONS ---
[address] [address] CONSULTATION REPORT PATIENT: JOSHUA MENG : 1955 MR#: [id number] ADMIT: 12/09/2016 JOB ID: [id number] DATE OF SERVICE: 12/09/2016 REQUESTING PHYSICIAN: Dr. Andrew Colon. REASON FOR CONSULTATION: Management of abnormal kidney function and hyperkalemia. CHIEF COMPLAINT: Abnormal blood work and lower abdominal pain. PRESENT ILLNESS: This is a 61-year-old, lady with significant past medical history of type 2 diabetes, hypertension, COPD, obstructive sleep apnea, obesity, dyslipidemia, hypothyroid who was instructed to come to the hospital due to abnormal blood work. The patient was hospitalized at [facility] between November 21 and November 28 due to sepsis due to acute cholecystitis. Patient underwent cholecystostomy tube placement by IR. She was discharged with Levaquin and fluconazole. She was also found to have acute kidney injury that was related to sepsis. She was told that her kidney function was normal prior to the discharge. The patient was discharged home with two blood pressure medications including lisinopril 20 mg once a day and hydrochlorothiazide 50 mg once a day. Amlodipine was discontinued due to low blood pressure. He reported that after she left the hospital, her blood pressure has been low, at home running between 80s to 90s systolic. Of note, she has been continued on antihypertensive medication the whole time with low blood pressure measurement. Of note, she has had drainage from cholecystostomy, roughly 400 cc a day. She went to see her practitioner two days ago for a follow up. The BMP showed a creatinine of 3.64, potassium of 6.0. The patient was told to come to the hospital for further investigation. The initial BMP at the emergency department showed a potassium of 6.6, BUN of 66, creatinine of 5.15, magnesium of 1.2. The patient reports no history of fever, chills, nausea, vomiting. No diarrhea. She stated that she has lower abdominal tenderness, mainly on the skin, not in the stomach. It was warm and hardened. It started one day prior to the admission. Her initial blood pressure was 89/39, pulse of 92, respiratory rate 17, pulse ox of 90. The patient received 1 L of fluid bolus and currently on normal saline 150 cc/hour. She seems comfortable during my visit. No fever. No chills. She is complaining of some tenderness on the skin at the lower abdominal area. She has no dysuria, no hematuria. Her urine output has been low since last night. The patient reported that she has lost quite a bit of weight after the last hospitalization. Her appetite is not great. From the outpatient record, in November her weight was 240 and the current weight is 205 pounds. PAST MEDICAL HISTORY: 1. Type 2 diabetes. 2. Hypertension. 3. History of acute kidney injury. Required short dialysis in the past. 4. Recent history of acute kidney injury in the setting of sepsis and acute cholecystitis. 5. Recent hospitalization in November. The patient was discharged on November 28. 6. Due to acute cholecystitis, status post cholecystostomy tube placement. 7. COPD. 8. Sleep apnea. 9. Obesity. 10. Dyslipidemia. 11. Hypothyroid. 12. Opioid dependent. FAMILY HISTORY: Noncontributory. SOCIAL HISTORY: The patient is a current every day smoker. She drinks occasionally. ALLERGIES: 1. TAPE. 2. INSULIN. 3. MONTELUKAST. 4. OXYCODONE. MEDICATIONS: 1. Lisinopril 20 mg once a day. 2. Hydrochlorothiazide 50 mg once a day. 3. Aspirin 81 mg once a day. 4. Atorvastatin 20 mg once a day. 5. Albuterol as needed. 6. Insulin glargine, Lantus, insulin lispro. 7. Levothyroxine. 8. Morphine. 9. Omeprazole. 10. Promethazine. The patient denies using any NSAIDs. REVIEW OF SYSTEMS: Fourteen point review of system was performed. PHYSICAL EXAMINATION: Vitals: Temperature 36.7, pulse 102, respiratory rate 20, blood pressure 88/51, O2 sat 90% on room air. General appearance: Awake, alert, oriented x3. No acute distress. HEENT: No pallor. No jaundice. No JVD. No lymphadenopathy. No thyroid enlargement. Heart: Regular rate and rhythm. Normal S1, S2. Tachycardic. Lungs clear to auscultation bilaterally. Abdomen is soft, active bowel sounds. Mild tenderness on the skin of the lower abdomen, positive for warmed erythema, mild tenderness. Cholecystostomy tube in place with bilious drainage. Extremity: No edema, cyanosis or clubbing of fingers. Chronic skin changes noted. LABORATORY: WBC 11.9, hemoglobin 12.9, sodium 137, potassium 6.6, chloride 101, bicarb 18, BUN 66, creatinine 1.15, lactic acid 1.3, calcium 7.8, phosphorus 8.9, magnesium 1.2, albumin 3.3, procalcitonin 0.24. ASSESSMENT: 1. Acute kidney injury. The patient appears to be hypovolemic. The etiology of acute kidney injury likely due to prerenal azotemia. There is a possibility of a component of acute tubular necrosis due to prolonged prerenal azotemia. 2. Hyperkalemia secondary to acute kidney injury and intravascular volume depletion. 3. Metabolic acidosis. 4. Hyperphosphatemia in the setting of acute kidney injury. 5. Diuretic-induced hypomagnesemia. 6. Suspected skin and soft tissue infection on the lower abdomen. 7. Recent history of sepsis and acute cholecystitis, status post cholecystostomy tube placement. 8. History of essential hypertension. 9. Type 2 diabetes, insulin-dependent. 10. History of obesity. 11. Sleep apnea. PLAN: 1. Per renal standpoint, I will repeat blood pressure. If she remains hypotensive, will recommend to give another normal saline bolus 1-2 L to restore intravascular volume. Then, continue normal saline 150 cc/hour. Repeat BMP tonight. Patient has received Kayexalate and albuterol. 2. No urgent indication for hemodialysis. We will continue to monitor closely. 3. We will hold lisinopril/hydrochlorothiazide. 4. May need to start doxycycline or Levaquin for the soft tissue infection. Thank you for allowing me to participate in the care of your patient. We will monitor along with you. HIEN
--- NOTE | 2016-12-09 19:04 | NUR ---
Admit from ER Pt. brought to 2007 this afternoon; A&Ox3; admit/med rec completed by Admit RN. Pt. Hypotensive; aware; archaeology professor consulted with pt. Pt. receiving NS 150 ml/hr. Mg 1.2; mg rider 4 gm infused. Pt. c/o 03/16 back pain; prn viocodin given with relief; pt. states pain is better at 09/14. K+ 6.6, kayexalate given in ED; f/u K+ 5.2.
[2016-12-09] MEDS: CeFAZolin Inj 1 GM in IV Premix 1 EACH IV SCH (19:13)
--- NOTE | 2016-12-09 19:21 | DRSVH ---
PROCEDURE: US ABDOMEN INDICATIONS: JADEN, cholecystitis s/p cholecystomy TECHNIQUE: Real-time scanning was performed of the abdominal and retroperitoneal organs, with image documentatio n. COMPARISON: None. FINDINGS: Liver length: 20.51 cm Gallbladder Wall Thickness: Possibly 7-8 mm in thickness although not well seen. There is a cholecyst ostomy drainage tube CHD: Not seen CBD: 1.22 cm Spleen length: 11.71 cm Right kidney length: 10.09 cm Left kidney length: 11.94 cm Aorta(Proximal): 2.29 cm Aorta(Mid): Not well-visualized Aorta(Distal): Not well-visualized RCIA: Not well-visualized LCIA: Not well-visualized Liver: Liver is enlarged in size and homogeneous in echotexture. Incidentally noted Baylee's lobe Gallbladder: Not well-seen as a cholecystostomy tube is in place and the gallbladder is decompressed Biliary ducts: Intrahepatic bile ducts are non-dilated. Extrahepatic bile duct caliber is normal. Normal is 6-7 mm or less in diameter, or 10 mm or less post-cholecystectomy. Pancreas: Visualized portions of the pancreas are sonographically normal. Pancreatic tail is not we ll-visualized due to shadowing bowel gas Spleen: Spleen is normal in size and homogeneous in echotexture. Kidneys: Kidneys are echogenic suggestive of medical renal disease. No hydronephrosis or nephrolith iasis. No solid masses. Aorta: Visualized aorta is normal in caliber at less than 3 cm. Iliacs: Proximal common iliac arteries are normal in caliber at less than 2.5 cm. IVC: Intrahepatic inferior vena cava is patent. Miscellaneous: No free abdominal fluid. IMPRESSION: Status post cholecystostomy. Gallbladder not well-seen. Please correlate clinically and with laborato ry data. Echogenic kidneys suggesting medical renal disease. Dictated by: Pal Ling M.D. on 12/09/2016 at 19:16 Approved by: Pal Ling M.D. on 12/09/2016 at 19:19
[2016-12-09] MEDS ORDERED: Albuterol 2.5 mg/3 mL Inhalation Solution NEB PRN (20:00)
[2016-12-09] MEDS: Insulin GLARgine 100 Unit/mL Syringe SUBQ SCH (20:30)
--- NOTE | 2016-12-09 20:53 | DRSVH ---
PROCEDURE: X-RAY CHEST ONE VIEW, PORTABLE ([id number]) INDICATIONS: Leucocytosis, JADEN TECHNIQUE: One view of the chest was acquired. COMPARISON: [facility], CR, XR CHEST 1VW (PORTABLE), 11/21/2016, 11:20. FINDINGS: Surgical changes and devices: None. Lungs and pleura: No pleural effusions or pneumothorax. Left basilar airspace opacity present other tapia lungs are clear. Mediastinum: Mediastinal contours appear normal. Heart size is normal. Bones and chest wall: No suspicious bony lesions. Overlying soft tissues appear unremarkable. IMPRESSION: Left basilar atelectasis versus aspiration or pneumonia. Correlate clinically. Dictated by: Carlos A Anaya RRA Interpreted: Toma Quezada MD on 12/09/2016 at 16:43 Approved by: Toma Quezada M.D. on 12/09/2016 at 20:51
[2016-12-09] MEDS: Fluticasone-Salmeterol 500-50 Inhaler INHALATION SCH (21:08)
[2016-12-09] MEDS: Morphine ER 30 mg (MS Contin) Tablet PO SCH (21:09)
[2016-12-09] MEDS: Insulin LISPRO 300 Unit/3 mL Inj SUBQ SCH (21:11)
[2016-12-10] VITALS (10 sets, daily range): BP systolic 99–146; BP diastolic 55–69; PULSE 60–85; RESP 14–18; O2SAT 93–99
[2016-12-10 03:05] LABS: APPEARANCE,URINE HAZY (CLEAR,HAZY); COLOR,URINE STRAW (YELLOW); OCCULT BLOOD,URINE NEGATIVE (NEGATIVE); UROBILINOGEN,URINE NORMAL (NORMAL)
[2016-12-10] MEDS: HYDROcodone-APAP 5-325 mg Tablet PO PRN ×2 (03:29→20:02)
[2016-12-10] MEDS: 0.9% Sodium Chloride 1,000 ML IV SCH ×2 (03:32→11:06)
--- NOTE | 2016-12-10 04:23 | NUR ---
Orthostatic BPs / Tele / Pain / O2 Desat/ Blood Glucose BP Lying 93/57, BP Sitting 105/66, BP Standing 100/63, VS remained stable with SBPs above 100 for the rest of the night. No c/o chest pain, Tele SR 70-90s with occ PVCs per Rn Assessment. Pt c/o back pain 3-12/14, medicated with scheduled MS Contin at HS, and later medicated with 1 Vicodin with good relief of pain. No c/o SOB, O2 @ 2L NC, sats 97-98%, Pt desats on RA down into the mid 80s. Blood glucoses tonight 124 and HS Lantus withheld, and this AMs blood glucose was 103.
[2016-12-10] MEDS: Pantoprazole 20 mg ER24 Tablet PO SCH (06:42)
[2016-12-10] MEDS: CeFAZolin Inj 1 GM in IV Premix 1 EACH IV SCH ×2 (07:10→18:38)
[2016-12-10] MEDS: Insulin LISPRO 300 Unit/3 mL Inj SUBQ SCH ×4 (08:00→22:00)
[2016-12-10 08:14] LABS: BASOPHILS % (AUTO) 0.7 % (0-3); EOSINOPHILS % (AUTO) 1.8 % (0-5); MONOCYTES % (AUTO) 4.8 % (4-12); Mean Corpuscular Hemoglobin 24.8 pg (27.0-35.0); NEUTROPHILS % (AUTO) 75.3 % (40-74); Platelet Count 213 bil/L (150-400)
[2016-12-10] MEDS ORDERED: Lisinopril 40 Tablet PO SCH (08:30)
[2016-12-10] MEDS: Insulin GLARgine 100 Unit/mL Syringe SUBQ SCH ×2 (08:30→20:03)
[2016-12-10] MEDS: Fluticasone-Salmeterol 500-50 Inhaler INHALATION SCH ×2 (08:39→20:03)
[2016-12-10] MEDS: Morphine ER 15 mg (MS Contin) Tablet PO SCH (08:40)
[2016-12-10] MEDS: Morphine ER 30 mg (MS Contin) Tablet PO SCH ×2 (08:40→20:03)
--- NOTE | 2016-12-10 09:42 | PCM.PNMED ---
Subjective Date of Service Dec 10, 2016 Subjective Overnight there were no acute events. This morning, Mrs. Pedraza says her abdominal pain feels better than yesterday and she doesn't feel so dizzy or weak. She denies any chest pain, palpitations, nausea/vomiting/diarrhea, fever/chills, or shortness of breath. Exam Vital Signs Vital Sign - Last Date Time Temp Pulse Resp B/P Pulse Ox O2 Delivery O2 Flow Rate FiO2 12/10/16 08:49 37.3 65 16 99/62 97 Nasal Cannula 2.00 Intake and Output 12/09/16 12/09/16 12/10/16 Cumulative From/Thru 15:00 23:00 07:00 12/09/16 12:11 - 12/10/16 06:01 Intake Total 1000 ml 554 ml 2849 ml 4403 ml Output Total 1600 ml 1600 ml Balance 1000 ml 554 ml 1249 ml 2803 ml Intake Oral 1313 ml 1313 ml IV Total 1000 ml 554 ml 1536 ml 3090 ml Output Urine Total 1600 ml 1600 ml # Voids 1 1 # Bowel Movements 1 1 Exam General: Unkept elderly woman laying in bed in NAD HEENT: NCAT, PERRLA, EOMI. Membranes pink and moist. Neck: Supple with full ROM, no JVD or thyromegaly CV: RRR, no murmurs/rubs/gallops Pulm: Coarse breath sounds throughout but no wheezes/rales/rhonchi Abd: Soft, obese. Drainage site is clear of erythema or purulence and is now draining. The cellulitic region below her umbilicus is less erythematous and tender. Extremities: Prominent vasculature and hard, dry, discolored patches of skin. No cyanosis, edema, clubbing. Neuro: A&Ox3. CN 2-12 intact, muscle strength normal in all extremities. No focal deficits. Psych: Normal mood and affect. IVs and Medications Medications Reviewed: Medications were reviewed in detail Lab and Diagnostics Result Diagram: 12/10/1673612/10/16736 Microbiology Blood cultures negative X-Rays, CTs and MRIs Abd U/S IMPRESSION: Status post cholecystostomy. Gallbladder not well-seen. Please correlate clinically and with laboratory data. Echogenic kidneys suggesting medical renal disease. Dictated by: Pal Ling M.D. on 12/09/2016 at 19:16 Approved by: Pal Lign M.D. on 12/09/2016 at 19:19 Chest XR IMPRESSION: Left basilar atelectasis versus aspiration or pneumonia. Correlate clinically. Dictated by: Carlos A Anaya RRA Interpreted: Toma Quezada MD on 12/09/2016 at 16:43 Approved by: Toma Quezada M.D. on 12/09/2016 at 20:51 12-lead ECG EKG in ED reports a rate of 76, NSR with T wave abnormalities (slightly peaked) Assessment & Plan Mrs. Pedraza is a 61 year old female with past medical history significant for hypertension, diabetes mellitus type 2, hyperlipidemia, COPD and recent gall bladder stent with drain for acute cholecystitis that presented to the Emergency Department on 12/09 with complaints of increased fatigue, dizziness, and lower quadrant abdominal pain for the past 24h. She says the pain is positional and rates it as a dull ache 4/10 in intensity. She denies any fever/ chills, nausea/vomiting/diarrhea, chest pain or shortness of breath. She adds that her blood pressure has been running low in the 90-100's and reecntly saw her PCP, Mary Sierra, who discontinued Lisinopril and did a BMP which revealed hyperkalemia of 6.0 and was told to come to the Emergency Department today. Hyperkalemia, present on admission, acute. Improved. - Patient feeling dizzy, fatigue, recent poor oral intake - Potassium was 6.6 in Emergency Department, is 5.5 12/10 - Given Kayexalate, Albuterol but not insulin due to questionable allergy - Dr. Prasad of Nephrology consulted, appreciate her expertise: 1L NS @ 150/hr Hold Lisinopril Hold off on more Kayexalate depending on evening metabolic panel Acute Renal Failure, present on admission, acute. Improving. - Creatinine 5.15 on admission, 3.47 on 12/10 - Dr. Prasad of Nephrology consulted, appreciate her expertise: Change NS at 150ml/hr to 1/2 NS at 100ml/hr Repeat metabolic panel this afternoon Magnesium, Phosphorus ordered - Avoid nephrotoxic meds Lower Quadrant Abdominal Cellulitis, present on admission, acute. Improved. - Patient reports occasional swelling of the area but has noticed recent redness , swelling, tenderness - No evidence of abscess formation, no fevers/chills, WBC normal - Started Ancef 1 mg every 12 hours (renally adjusted dose) - Continue to monitor Acute Cholecystitis with recent Gallbladder drain placed, present on admission. Stable. - Patient was septic on last admission and transferred to [facility] where they input a stent and drain as she was too unstable for cholescystectomy - Drain has had output daily since then, no output for ~1 day. Is draining normally as of 12/10. - No abdominal pain, erythema, tenderness around drain site - Lactic Acid 1.3 - Dr. Daniel consulted, reports the drain is functional without issues. He will see her in the clinic in 2-3 weeks in preparation for outpatient cholescystectomy. Hypertension, present on admission, chronic. Ongoing. - Patient was taken off Lisinopril recently by her PCP - Recent blood pressures at home have been 90-100's, similarly here since admission - Fluid resuscitation per Dr. Prasad above - Continue holding blood pressure meds - Continue to monitor Diabetes Mellitus Type 2, present on admission. Controlled. - Patient reports recent glucose control, 105 on 12/10 - A1C 8.1 - Continue home insulin regimen - Medium dose correctional scale Asthma, present on admission, chronic. Stable. - Continue home medications COPD, present on admission, chronic. Stable. - Continue home medications GERD, present on admission, chronic. Stable. - Continue home omeprazole (converted by pharmacy) Hyperlipidemia - Continue home statin Tobacco Dependence, present on admission. Stable. - Patient expresses desire to quit - Counseled on cessation options and support options as outpatient -Nicotine patch offered, declined at this time Acetominophen for mild pain, fever, headache as needed. Bowel regimen as needed. VTE prophylaxis: SubQ heparin Patient Status: The patient will likely be here 2-3 more days depending on her improving renal and overall electrolyte condition, as well as the cellulitic response to antibiotics. Pain Evaluation: Adequate Pain Control GI Prophylaxis: Proton Pump Inhibitor VTE Prophylaxis: Sub-Q Heparin (Unfractionated) Resuscitation Status: CPR: Attempt Resuscitation Attending Statement The patient was seen and examined together with Dr. Mulligan on 12/10/2016 and I agree with the history, exam and plan as outlined in the note above. . Shaquille Mulligan DO Dec 10, 2016 09:42 Andrew Colon MD Dec 10, 2016 18:06
--- NOTE | 2016-12-10 11:34 | PCM.PNNEPH ---
Subjective Date of Service Dec 10, 2016 Subjective Feeling better, UOP has increased. K improved. Cr trended. BP on the low side. Lisinopril and HCTZ on hold. Exam Vital Signs Vital Sign - Last Date Time Temp Pulse Resp B/P Pulse Ox O2 Delivery O2 Flow Rate FiO2 12/10/16 10:21 Supplement Oxygen 12/10/16 08:49 37.3 65 16 99/62 97 2.00 Intake and Output 12/09/16 12/09/16 12/10/16 Cumulative From/Thru 15:00 23:00 07:00 12/09/16 12:11 - 12/10/16 06:01 Intake Total 1000 ml 554 ml 2849 ml 4403 ml Output Total 1600 ml 1600 ml Balance 1000 ml 554 ml 1249 ml 2803 ml Intake Oral 1313 ml 1313 ml IV Total 1000 ml 554 ml 1536 ml 3090 ml Output Urine Total 1600 ml 1600 ml # Voids 1 1 # Bowel Movements 1 1 Exam General appearance: Awake, alert, oriented x3. No acute distress. HEENT: No pallor. No jaundice. No JVD. No lymphadenopathy. No thyroid enlargement. Heart: Regular rate and rhythm. Normal S1, S2. Tachycardic. Lungs clear to auscultation bilaterally. Abdomen is soft, active bowel sounds. Mild tenderness on the skin of the lower abdomen, positive for warmth, erythema Cholecystostomy tube in place with bilious drainage. Extremity: No edema, cyanosis or clubbing of fingers. Chronic skin changes noted. Lab and Diagnostics Result Diagram: 12/10/16 0737 12/10/16 0737 Microbiology Blood cultures negative 12-lead ECG EKG in ED reports a rate of 76, NSR with T wave abnormalities (slightly peaked) Plan Impression ASSESSMENT: 1. Acute kidney injury. The patient appears to be hypovolemic. The etiology of acute kidney injury likely due to prerenal azotemia. There is a possibility of a component of acute tubular necrosis due to prolonged prerenal azotemia. 2. Hyperkalemia secondary to acute kidney injury and intravascular volume depletion. 3. Metabolic acidosis. 4. Hyperphosphatemia in the setting of acute kidney injury. 5. Diuretic-induced hypomagnesemia. 6. Suspected skin and soft tissue infection on the lower abdomen. 7. Recent history of sepsis and acute cholecystitis, status post cholecystostomy tube placement. 8. History of essential hypertension. 9. Type 2 diabetes, insulin-dependent. 10. History of obesity. 11. Sleep apnea. Plan: Continue to hold BP meds. d/c NS. start 1/2 NS 100 ml/hr. repeat BMP in pm. Sean Mcneil MD Dec 10, 2016 11:33
--- NOTE | 2016-12-10 12:00 | NUR ---
AM medications Withheld am dose of 65 units Lantus for BG being 106, also with held 50 mg Hydroclorathiazide for a BP 99/62. aware and ok. Rechecked BG later and it was 136.
[2016-12-10 14:48] LABS: Magnesium 1.9 mg/dL (1.6-2.6); Phosphorus 6.5 mg/dL (2.5-4.9)
[2016-12-11] VITALS (8 sets, daily range): BP systolic 122–146; BP diastolic 61–74; PULSE 72–125; RESP 16–23; O2SAT 92–99
[2016-12-11 02:48] LABS: BASOPHILS % (AUTO) 1.2 % (0-3); EOSINOPHILS % (AUTO) 3.7 % (0-5); MONOCYTES % (AUTO) 7.6 % (4-12); Mean Corpuscular Hemoglobin 25.1 pg (27.0-35.0); Mean Corpuscular Volume 82.3 fL (81-100); NEUTROPHILS % (AUTO) 70.8 % (40-74); Platelet Count 184 bil/L (150-400)
[2016-12-11] MEDS ORDERED: Albuterol 2.5 mg/3 mL Inhalation Solution NEB ONE (04:20)
[2016-12-11] MEDS ORDERED: Albuterol 0.5% (5mg/mL) 20 mL Inhalation Solution NEB ONE (04:40)
[2016-12-11] MEDS: HYDROcodone-APAP 5-325 mg Tablet PO PRN ×2 (04:48→20:29)
--- NOTE | 2016-12-11 04:55 | NUR ---
Labs/resp/drain/pain/infx K 5.8 this AM, provider notified, order for albuterol 20 mg and kayexelate 15 mg rec'd. Creatinine improves. Maintains 93% on 2L NC, denies SOB, wheezy throughout. Biliary drain patent, scant amount of green drainage noted. Routine MS and prn norco given q8 for chronic back pain. Lower abdomen erythemic, warm, painful to touch. Continues on IV abx and 0.45% NS. Care continues.
[2016-12-11] MEDS: Pantoprazole 20 mg ER24 Tablet PO SCH (06:05)
[2016-12-11] MEDS: CeFAZolin Inj 1 GM in IV Premix 1 EACH IV SCH ×2 (06:25→20:28)
--- NOTE | 2016-12-11 07:10 | NUR ---
Heart rate Pt heart rate up to 120s sustaining. Sinus tachycardia 120s. T 37.2 , BP 122/61, HR 125, 93% on 5L. She denies any chest pain/discomfort. Pt c/o chronic back pain but not other discomfort reported. BG 251. Natalya ZIEGLER paged and made aware of changes. Report given to natalya RN.
[2016-12-11] MEDS: Insulin GLARgine 100 Unit/mL Syringe SUBQ SCH ×2 (07:41→20:32)
[2016-12-11] MEDS: Fluticasone-Salmeterol 500-50 Inhaler INHALATION SCH ×2 (07:41→20:38)
[2016-12-11] MEDS: Morphine ER 30 mg (MS Contin) Tablet PO SCH ×2 (07:42→20:29)
[2016-12-11] MEDS: Morphine ER 15 mg (MS Contin) Tablet PO SCH (07:42)
[2016-12-11] MEDS: Insulin LISPRO 300 Unit/3 mL Inj SUBQ SCH ×4 (07:43→20:39)
--- NOTE | 2016-12-11 10:12 | NUR ---
HR Patient continues to be tachycardic but heart dropping currently in 110s. Patient asymptomatic, stating she feels fine.
--- NOTE | 2016-12-11 11:32 | NUR ---
Social Work: Multidisciplinary Rounds/Initial Assessment D: Per EMR review, pt is a 61 year old female admitted for Hyperkalemia, Hypotension. Pt is [employer] with no LTC or VA benefits. PCP is Mary Morrison PA-C. NOK is Javy Pedraza, Spouse, . Advanced directives information provided to pt at bedside. Pt is a readmission and was discharged from [facility] on 12/05/16. Readmit score is high, 3/8. BRAND ATTENDANT met with pt at bedside to discuss dcp. Discharge planning checklist provided to pt. and contact information provided to pt. Pt and spouse live on [address]. Pt is I at baseline, uses no DME and has never had home health. Pt confirms that she was not discharged with any supportive services from [facility] for her new Cholecystostomy. Pt states that she is following up with surgeon as an outpatient in [place] who is managing her Ostomy. Pt is hoping to have her gallbladder removed. Pt does not feel she needs home health and states that she is not homebound. Pt states that she "just overdid it when I got home from [facility]." Pt states that she knows her limits now and that she does not feel she needs supportive services to prevent another readmission. Pt states her spouse will transport her back home when medically stable. Pt discussed in MD rounds. Pt may be medically stable for discharge this afternoon. MD and team express no concerns about pt's capacity for self care and pt has been engaged in all care during hosptialization. No sw needs identified at discharge. A: Pt who is I at baseline. P: Anticipate pt to discharge home via POV and no sw needs; BRAND ATTENDANT to continue to follow to assess for new d/c needs. JONATAN Moody Addendum: 12/11/16 at 1146 by EMILIANA SAMPSON Amended: Links added.
--- NOTE | 2016-12-11 11:49 | PCM.PNMED ---
Subjective Date of Service Dec 11, 2016 Subjective Overnight there were no acute events. Mrs. Pedraza says her abdominal cellulitis is less painful today and her chronic back pain is the best it has been in some time and is wondering when she can go home. Exam Vital Signs Vital Sign - Last Date Time Temp Pulse Resp B/P Pulse Ox O2 Delivery O2 Flow Rate FiO2 12/11/16 08:00 114 12/11/16 07:37 18 92 Nasal Cannula 3.00 12/11/16 06:56 37.2 122/61 Intake and Output 12/10/16 12/10/16 12/11/16 Cumulative From/Thru 15:00 23:00 07:00 12/09/16 12:11 - 12/11/16 06:43 Intake Total 3371 ml 2010 ml 9784 ml Output Total 100 ml 750 ml 2450 ml Balance -100 ml 3371 ml 1260 ml 7334 ml Intake Oral 918 ml 2231 ml IV Total 3371 ml 1092 ml 7553 ml Output Urine Total 750 ml 2350 ml Drainage Total 100 ml 100 ml # Voids 1 # Bowel Movements 1 Exam General: Unkept elderly woman laying in bed in NAD HEENT: NCAT, PERRLA, EOMI. Membranes pink and moist. Neck: Supple with full ROM, no JVD or thyromegaly CV: Tachycardic this morning with regular rhythm, no murmurs/rubs/gallops Pulm: Coarse breath sounds throughout but no wheezes/rales/rhonchi Abd: Soft, obese. Drainage site is clear of erythema or purulence and is now draining. The cellulitic region below her umbilicus has retreated from the marked line but still slightly tender. Extremities: Prominent vasculature and hard, dry, discolored patches of skin. No cyanosis, edema, clubbing. Neuro: A&Ox3. CN 2-12 intact, muscle strength normal in all extremities. No focal deficits. Psych: Normal mood and affect. IVs and Medications Medications Reviewed: Medications were reviewed in detail Lab and Diagnostics Result Diagram: 12/11/1623412/11/16234 Microbiology Blood cultures negative X-Rays, CTs and MRIs Abd U/S IMPRESSION: Status post cholecystostomy. Gallbladder not well-seen. Please correlate clinically and with laboratory data. Echogenic kidneys suggesting medical renal disease. Dictated by: Pal Ling M.D. on 12/09/2016 at 19:16 Approved by: Pal Ling M.D. on 12/09/2016 at 19:19 Chest XR IMPRESSION: Left basilar atelectasis versus aspiration or pneumonia. Correlate clinically. Dictated by: Carlos A Anaya RRA Interpreted: Toma Quezada MD on 12/09/2016 at 16:43 Approved by: Toma Quezada M.D. on 12/09/2016 at 20:51 12-lead ECG EKG in ED reports a rate of 76, NSR with T wave abnormalities (slightly peaked) Assessment & Plan Mrs. Pedraza is a 61 year old female with past medical history significant for hypertension, diabetes mellitus type 2, hyperlipidemia, COPD and recent gall bladder stent with drain for acute cholecystitis that presented to the Emergency Department on 12/09 with complaints of increased fatigue, dizziness, and lower quadrant abdominal pain for the past 24h. She says the pain is positional and rates it as a dull ache 4/10 in intensity. She denies any fever/ chills, nausea/vomiting/diarrhea, chest pain or shortness of breath. She adds that her blood pressure has been running low in the 90-100's and reecntly saw her PCP, Mary Sierra, who discontinued Lisinopril and did a BMP which revealed hyperkalemia of 6.0 and was told to come to the Emergency Department today. Hyperkalemia, present on admission, acute. Ongoing. - Potassium was 6.6 in Emergency Department, 5.5 on 12/10, and 5.8 12/12 - Given Kayexalate 15, Albuterol 20 mg - Will continue 1/2 NS @ 100ml/hr per Nephrology - Hold Lisinopril - Consider restarting home HCTZ to alleviate potassium as her blood pressures have normalized - Metabolic panel ordered for 1400 to reassess Acute Renal Failure, present on admission, acute. Improving. - Creatinine 5.15 on admission, 3.47 on 12/10, now 2.37 on 12/11 - Fluids as above - Avoid nephrotoxic meds Lower Quadrant Abdominal Cellulitis, present on admission, acute. Improved. - Patient reports occasional swelling of the area but has noticed recent redness , swelling, tenderness - No evidence of abscess formation, no fevers/chills, WBC normal - Continue Ancef 1 mg every 12 hours (renally adjusted dose), plan to transition to Keflex on discharge - Continue to assess Acute Cholecystitis with recent Gallbladder drain placed, present on admission. Stable. - Patient was septic on last admission and transferred to [facility] where they input a stent and drain as she was too unstable for cholescystectomy - Drain continues to be functional, no surrounding erythema or purulence - Dr. Daniel will see her in the clinic in 2-3 weeks in preparation for outpatient cholescystectomy. Hypertension, present on admission, chronic. Ongoing. - Patient was taken off Lisinopril recently by her PCP - Recent blood pressures at home have been 90-100's, similarly here since admission - Fluid resuscitation per Dr. Prasad above - Continue holding blood pressure meds - Continue to monitor Diabetes Mellitus Type 2, present on admission. Controlled. - A1C 8.1 - Continue home insulin regimen - Medium dose correctional scale Asthma, present on admission, chronic. Stable. - Continue home medications COPD, present on admission, chronic. Stable. - Continue home medications GERD, present on admission, chronic. Stable. - Continue home omeprazole (converted by pharmacy) Hyperlipidemia - Continue home statin Tobacco Dependence, present on admission. Stable. - Patient expresses desire to quit - Counseled on cessation options and support options as outpatient -Nicotine patch offered, declined at this time Acetominophen for mild pain, fever, headache as needed. Bowel regimen as needed. VTE prophylaxis: SubQ heparin Patient Status: The patient will likely be here 2-3 more days depending on her improving renal and overall electrolyte condition, as well as the cellulitic response to antibiotics. Pain Evaluation: Adequate Pain Control GI Prophylaxis: Proton Pump Inhibitor VTE Prophylaxis: Sub-Q Heparin (Unfractionated) Resuscitation Status: CPR: Attempt Resuscitation Attending Statement The patient was seen and examined together with Dr. Mulligan on 12/11/2016 and I agree with the history, exam and plan as outlined in the note above. . Shaquille Mulligan DO Dec 11, 2016 11:49 Andrew Colon MD Dec 12, 2016 17:27
--- NOTE | 2016-12-11 14:12 | PCM.PNNEPH ---
Subjective Date of Service Dec 11, 2016 Subjective The patient's renal function continues to improve Haynes with IV hydration. Her blood pressures in the 120 range systolically. Her intake and output for the last 24 hours for 60 07/27/2010 1700 out. She states that she still has some mild nausea but was able to tolerate her diet. She denies any headache, chest pain, shortness of breath, or diarrhea. This morning her sodium is 143, potassium 5.8, chloride 108, bicarbonate 22, BUN and creatinine are improving at 46 and 2.37 respectively. Exam Vital Signs Vital Sign - Last Date Time Temp Pulse Resp B/P Pulse Ox O2 Delivery O2 Flow Rate FiO2 12/11/16 08:00 114 12/11/16 07:37 18 92 Nasal Cannula 3.00 12/11/16 06:56 37.2 122/61 Intake and Output 12/10/16 12/10/16 12/11/16 Cumulative From/Thru 15:00 23:00 07:00 12/09/16 12:11 - 12/11/16 06:43 Intake Total 3371 ml 2010 ml 9784 ml Output Total 100 ml 750 ml 2450 ml Balance -100 ml 3371 ml 1260 ml 7334 ml Intake Oral 918 ml 2231 ml IV Total 3371 ml 1092 ml 7553 ml Output Urine Total 750 ml 2350 ml Drainage Total 100 ml 100 ml # Voids 1 # Bowel Movements 1 Exam HEENT examination is remarkable for pale sclera and moist mucous membranes. Neck is supple without adenopathy, thyromegaly, or jugular venous distention. Lungs are clear to auscultation. Heart was regular and rhythmical with a soft systolic murmur. Abdomen is soft without any tenderness rebound guarding masses or hepatosplenomegaly. Skin turgor is good and there is no evidence of any rashes. Lab and Diagnostics Result Diagram: 12/11/16 0235 12/11/16 0235 Microbiology Blood cultures negative X-Rays, CTs and MRIs Abd U/S IMPRESSION: Status post cholecystostomy. Gallbladder not well-seen. Please correlate clinically and with laboratory data. Echogenic kidneys suggesting medical renal disease. Dictated by: Pal Ling M.D. on 12/09/2016 at 19:16 Approved by: aPl Ling M.D. on 12/09/2016 at 19:19 Chest XR IMPRESSION: Left basilar atelectasis versus aspiration or pneumonia. Correlate clinically. Dictated by: Carlos A Anaya RRA Interpreted: Toma Quezada MD on 12/09/2016 at 16:43 Approved by: Toma Quezada M.D. on 12/09/2016 at 20:51 12-lead ECG EKG in ED reports a rate of 76, NSR with T wave abnormalities (slightly peaked) Plan Impression Impression #1 acute kidney injury secondary to dehydration which is resolving # 2 dehydration which is resolving #3 type IV renal tubular acidosis. Recommendations #1 would like to continue her hydration and continue to follow her labs, intake, output, and blood pressures. Javy Acosta DO Dec 11, 2016 14:12
--- NOTE | 2016-12-11 18:45 | NUR ---
Febrile Patient had low grade temp ranging from 9-100.2 F throughout shift, but stated she feels fine. Did not treat per MD. Will continue to monitor.
--- NOTE | 2016-12-11 23:10 | NUR ---
Resp Patient found on 3L NC, attempted to titrate it down. 94% on RA while awake, but during spot checks of patient while sleeping she was found to be as low as 87%. 2L NC applied with SpO2 in the mid 90s. Patient reports that she wears O2 PRN at home.
[2016-12-12 01:01] VITALS: BP 161/81; PULSE 88; O2SAT 97
[2016-12-12 03:01] LABS: Mean Corpuscular Volume 83.2 fL (81-100)
[2016-12-12] MEDS: HYDROcodone-APAP 5-325 mg Tablet PO PRN (05:12)
[2016-12-12] MEDS: Pantoprazole 20 mg ER24 Tablet PO SCH (06:59)
[2016-12-12] MEDS: CeFAZolin Inj 1 GM in IV Premix 1 EACH IV SCH (07:00)
[2016-12-12] MEDS: Insulin LISPRO 300 Unit/3 mL Inj SUBQ SCH (08:00)
[2016-12-12] MEDS: Fluticasone-Salmeterol 500-50 Inhaler INHALATION SCH (08:19)
[2016-12-12] MEDS: Morphine ER 15 mg (MS Contin) Tablet PO SCH (08:23)
[2016-12-12 08:24] VITALS: BP 136/71; PULSE 77; RESP 18; O2SAT 97
[2016-12-12] MEDS: Morphine ER 30 mg (MS Contin) Tablet PO SCH (08:24)
[2016-12-12] MEDS: Insulin GLARgine 100 Unit/mL Syringe SUBQ SCH (08:33)
--- NOTE | 2016-12-12 09:58 | PCM.PNNEPH ---
Subjective Date of Service Dec 12, 2016 Subjective Patient continues to improve. She is tolerating her diet and denies any headache, chest pain, shortness of breath, nausea, or vomiting. Her intake and output last 24 hours were 34 BUN 1750 out. His morning her sodium is 146, potassium 5.0, chloride 109, bicarbonate 23, BUN/creatinine were 28 and 1.2 respectively. Exam Vital Signs Vital Sign - Last Date Time Temp Pulse Resp B/P Pulse Ox O2 Delivery O2 Flow Rate FiO2 12/12/16 08:24 37.0 77 18 136/71 97 Nasal Cannula 2.00 Intake and Output 12/11/16 12/11/16 12/12/16 Cumulative From/Thru 15:00 23:00 07:00 12/09/16 12:11 - 12/12/16 06:06 Intake Total 1470 ml 1560 ml 88737 ml Output Total 1000 ml 1050 ml 4500 ml Balance 470 ml 510 ml 8314 ml Intake Oral 740 ml 360 ml 3331 ml IV Total 730 ml 1200 ml 9483 ml Output Urine Total 1000 ml 1050 ml 4400 ml Drainage Total 100 ml # Voids 1 # Bowel Movements 1 2 Exam HEENT examination is remarkable for pale sclera. Neck is supple without adenopathy, thyromegaly, or jugular venous distention. Clear to auscultation. Heart is regular and rhythmical with a soft systolic murmur. Abdomen soft without any tenderness rebound guarding masses or hepatosplenomegaly. Extremities do not show any evidence of any clubbing, cyanosis, or edema. Skin turgor is good. Lab and Diagnostics Result Diagram: 12/12/16 0240 12/12/16 0800 Microbiology Blood cultures negative X-Rays, CTs and MRIs Abd U/S IMPRESSION: Status post cholecystostomy. Gallbladder not well-seen. Please correlate clinically and with laboratory data. Echogenic kidneys suggesting medical renal disease. Dictated by: Pal Ling M.D. on 12/09/2016 at 19:16 Approved by: Pal Ling M.D. on 12/09/2016 at 19:19 Chest XR IMPRESSION: Left basilar atelectasis versus aspiration or pneumonia. Correlate clinically. Dictated by: Carlos A Anaya RRA Interpreted: Toma Quezada MD on 12/09/2016 at 16:43 Approved by: Toma Quezada M.D. on 12/09/2016 at 20:51 12-lead ECG EKG in ED reports a rate of 76, NSR with T wave abnormalities (slightly peaked) Plan Impression Impression #1 acute kidney injury secondary to dehydration which has resolved # 2 metabolic acidosis #3 hypertension with hypertensive heart disease and hypertensive nephrosclerosis Recommendations #1 over to continue her on her current medical therapy and have her follow up either with Dr. Prasad or myself in about a month. Javy Acosta DO Dec 12, 2016 09:58
--- NOTE | 2016-12-12 11:11 | PCM.DIMED ---
Shaquille Mulligan DO 12/12/16 1109: Discharge Instructions Date of Service Dec 12, 2016 Dates of Hospitalization Dec 09, 2016 at 14:30 Discharge Diagnosis Discharge Diagnosis Hyperkalemia Acute Renal Failure Lower Quadrant Abdominal Cellulitis Acute Cholecystitis with recent Gallbladder drain placed Hypertension Diabetes Mellitus Type 2 Asthma COPD GERD Hyperlipidemia Tobacco Dependence Diet Discharge Diet: Diabetic, Renal Diet Activity Discharge Activity: No restrictions Call your provider Call your provider for: Fever or Chills, Shortness of breath, Chest pain, Vomitting Patient Instructions Patient Instructions Take your antibiotic, Cephalexin, 500mg four times daily until you run out to ensure your cellulitis responds accordingly. Follow up with your primary care doctor in 1-2 weeks for evaluation of your cellulitis, potassium, and kidney function. Please call the Nephrology office at [phone] to schedule a follow up appointment with Dr. Acosta or Dr. Prasad in 1 month. Please call the Surgery office at [phone] to schedule your gallbladder surgery with Dr. Daniel in 2-4 weeks. Follow-up Provider: Mary Sierra PA-C Follow-up with PCP in: 1 week (1-2 weeks) Follow-up in: 4 weeks (Dr. Acosta or Dr. Prasad in a month) Andrew Colon MD 12/12/16 1730: Discharge Instructions Attending's Statement The patient was seen and examined together with Dr. Mulligan on 12/12/2016 and I agree with the history, exam and plan as outlined in the note above. . Shaquille Mulligan DO Dec 12, 2016 11:09 Andrew Colon MD Dec 12, 2016 17:30
[2016-12-12] MEDS ORDERED: CEPH-512 PO (11:13)
--- NOTE | 2016-12-12 11:37 | NUR ---
Social WorK: Multidisciplinary Rounds/Discharge D: Pt discussed in am rounds. Pt is medically stable for discharge home with no supportive d/c services. MD and team have no concerns for pt's capacity for self care and identify no discharge needs from social work. RN will review discharge instructions, education and medications with pt and spouse prior to d/c. A: Pt who is I at baseline. P: Pt to discharge home via POV and no sw needs; spouse to transport. JONATAN Moody
--- NOTE | 2016-12-12 13:55 | NUR ---
Discharge D/C to home with . Dressing changed, provided dressing for reinforcement. D/C instruction and packet provided. No further questions at this time. Ambulated off floor with all belongings.
--- NOTE | 2016-12-12 15:12 | PCM.DC.MED ---
Discharge Summary Date of Service Dec 12, 2016 Dates of Hospitalization Date of Hospital Admission Dec 09, 2016 at 14:30 Date of Discharge: Dec 12, 2016 Providers: Admitting Physician: Andrew Colon MD Primary Care Physician: Mary Sierra PA-C Attending Physician: Andrew Colon MD Diagnosis at Time of Discharge Diagnosis at Time of Discharge Hyperkalemia Acute Renal Failure Lower Quadrant Abdominal Cellulitis Acute Cholecystitis with recent Gallbladder drain placed Hypertension Diabetes Mellitus Type 2 Asthma COPD GERD Hyperlipidemia Tobacco Dependence Consultations Dr. Prasad and Dr. Acosta, Nephrology Procedures XRay, CTs & MRIs Abd U/S IMPRESSION: Status post cholecystostomy. Gallbladder not well-seen. Please correlate clinically and with laboratory data. Echogenic kidneys suggesting medical renal disease. Dictated by: Pal Ling M.D. on 12/09/2016 at 19:16 Approved by: Pal Ling M.D. on 12/09/2016 at 19:19 Chest XR IMPRESSION: Left basilar atelectasis versus aspiration or pneumonia. Correlate clinically. Dictated by: Carlos A Anaya RRA Interpreted: Toma Quezada MD on 12/09/2016 at 16:43 Approved by: Toma Quezada M.D. on 12/09/2016 at 20:51 ECG 12 Lead EKG in ED reports a rate of 76, NSR with T wave abnormalities (slightly peaked) Brief History Mrs. Pedraza is a 61 year old female with past medical history significant for hypertension, diabetes mellitus type 2, hyperlipidemia, COPD and recent gall bladder stent with drain for acute cholecystitis that presented to the Emergency Department on 12/09 with complaints of increased fatigue, dizziness, and lower quadrant abdominal pain for the past 24h. She says the pain is positional and rates it as a dull ache 4/10 in intensity. She denies any fever/ chills, nausea/vomiting/diarrhea, chest pain or shortness of breath. She adds that her blood pressure has been running low in the 90-100's and reecntly saw her PCP, Mary Sierra, who discontinued Lisinopril and did a BMP which revealed hyperkalemia of 6.0 and was told to come to the Emergency Department today. The patient was given Kayexalate and Albuterol in the ED as there was a questionable allergy to insulin. Nephrology was consulted. She was fluid resuscitated and given more Kayexalate during her admission for potassium that bounced between high and normal. Her potassium stabilized once her blood pressures came up and she was restarted on her home HCTZ. Upon admission an abdominal exam revealed a significant cellulitis in the lower abdominal quadrants. She was placed on IV Cefazolin (renally dosed) as there was no concern for MRSA. Her gallbladder drain stopped draining and Dr. Daniel of surgery was consulted. He did not find significant impedance and the drain started having output shortly after he saw the patient. He recommends she follow up with him as an outpatient for gallbladder and drain removal. Hospital Course Mrs. Pedraza is a 61 year old female with past medical history significant for hypertension, diabetes mellitus type 2, hyperlipidemia, COPD and recent gall bladder stent with drain for acute cholecystitis that presented to the Emergency Department on 12/09 with complaints of increased fatigue, dizziness, and lower quadrant abdominal pain for the past 24h. She says the pain is positional and rates it as a dull ache 4/10 in intensity. She denies any fever/ chills, nausea/vomiting/diarrhea, chest pain or shortness of breath. She adds that her blood pressure has been running low in the 90-100's and reecntly saw her PCP, Mary Sierra, who discontinued Lisinopril and did a BMP which revealed hyperkalemia of 6.0 and was told to come to the Emergency Department. Hyperkalemia, present on admission, acute. Resolved. - Potassium 5.0 on discharge - Continue home HCTZ - Patient to hold Lisinopril until she sees Mary Sierra for a BMP later this week Acute Renal Failure, present on admission, acute. Resolved. - Creatinine 5.15 on admission, fell to 1.23 at discharge - Avoid nephrotoxic meds - Hold Lisinopril as above - Patient will schedule appointment with Nephrology for follow up in 1 month Lower Quadrant Abdominal Cellulitis, present on admission, acute. Improved. - Patient received 3 days of renally dosed Ancef (1g IV every 12 hours) - Patient given prescription for Keflex 500mg four times daily for 5 more days - Patient will follow up with Mary Sierra later this week to assess Acute Cholecystitis with recent Gallbladder drain placed, present on admission. Stable. - Drain is in place, no signs/symptoms of infection, draining properly - Patient will call Dr. Daniel office to set up outpatient procedure Hypertension, present on admission, chronic. Stable. - Continue home HCTZ - Hold Lisinopril as above Diabetes Mellitus Type 2, present on admission. - A1C 8.1 - Continue home insulin regimen Asthma, present on admission, chronic. Stable. - Continue home medications COPD, present on admission, chronic. Stable. - Continue home medications GERD, present on admission, chronic. Stable. - Continue home omeprazole Hyperlipidemia - Continue home statin Tobacco Dependence, present on admission. Stable. - Patient expresses desire to quit - Counseled on cessation options and support options as outpatient with her PCP Patient Status: The patient was discharged home in improved and stable condition. She and her expressed understanding of the continued treatment plan and under which conditions to return to the hospital. Exam Vital Signs (Last) Date Time Temp Pulse Resp B/P Pulse Ox O2 Delivery O2 Flow Rate FiO2 12/12/16 08:24 37.0 77 18 136/71 97 Nasal Cannula 2.00 Exam General: Unkept elderly woman laying in bed in NAD HEENT: NCAT, PERRLA, EOMI. Membranes pink and moist. Neck: Supple with full ROM, no JVD or thyromegaly CV: Tachycardic this morning with regular rhythm, no murmurs/rubs/gallops Pulm: Coarse breath sounds throughout but no wheezes/rales/rhonchi Abd: Soft, obese. Drainage site is clear of erythema or purulence and is now draining. The cellulitic region below her umbilicus has mostly resolved, minimal erythema and no related pain or tenderness. Extremities: Prominent vasculature and hard, dry, discolored patches of skin. No cyanosis, edema, clubbing. Neuro: A&Ox3. CN 2-12 intact, muscle strength normal in all extremities. No focal deficits. Psych: Normal mood and affect. Test 12/09/16 12:50 12/10/16 02:30 12/10/16 14:05 12/11/16 02:35 Hemoglobin A1c 8.1% (4.8-5.6) Lactic Acid Level 1.3mmol/L (0.4-2.0) Urine Color Straw (YELLOW) Urine Appearance Hazy (CLEAR,HAZY) Urine pH 5.0 (5.0-8.0) Urine Specific [place] 1.009 (1.003-1.035) Urine Protein Negativemg/dL (NEG,TRACE) Urine Glucose (UA) Negativemg/dL (NEGATIVE) Urine Ketones Negativemg/dL (NEGATIVE) Urine Occult Blood Negative (NEGATIVE) Urine Nitrite Negative (NEGATIVE) Urine Bilirubin Negative (NEGATIVE) Urine Urobilinogen Normalmg/dL (NORMAL) Urine Leukocyte Esterase Negative (NEGATIVE) Urine RBC 0-2/hpf (0-2) Urine WBC 0-5/hpf (0-5) Urine Epithelial Cells Moderate/hpf (NONE-MOD) Urine Crystals Amorphous urates (NONE Urine Bacteria Few/hpf (NONE-FEW) Urine Hyaline Casts Rare/lpf (NONE) Urine Granular Casts None seen (NONE SEEN) Urine Waxy Casts None seen (NONE SEEN) Urine Red Blood Cell Casts None seen (NONE SEEN) Urine White Blood Cell Casts None seen (NONE SEEN) Urine Mucus Present (None Seen) Urine Trichomonas None seen (NONE SEEN) Urine Yeast None (NONE SEEN) Urinalysis Comment None Urine Culture Reflexed Not indicated Urine Random Creatinine 77mg/dL (15-278) Urine Random Total Protein 6mg/dL (0-15) Urine Random Sodium 62mEq/L Phosphorus Level 6.5mg/dL (2.5-4.9) Magnesium Level 1.9mg/dL (1.6-2.6) Neutrophils (%) (Auto) 70.8% (40-74) Lymphocytes (%) (Auto) 16.6% (14-46) Monocytes (%) (Auto) 7.6% (4-12) Eosinophils (%) (Auto) 3.7% (0-5) Basophils (%) (Auto) 1.2% (0-3) Total Bilirubin 0.2mg/dL (0.0-1.2) Aspartate Amino Transf (AST/SGOT) 14U/L (0-50) Alanine Aminotransferase (ALT/SGPT) 5U/L (0-32) Alkaline Phosphatase 76U/L (25-165) Total Protein 5.4g/dL (6.4-8.4) Albumin 3.1g/dL (3.4-5.0) Procalcitonin 0.19ng/mL (0.00-0.08) Test 12/12/16 02:40 12/12/16 08:00 White Blood Count 6.4th/mm3 (3.8-10.1) Red Blood Count 4.40mil/mm3 (3.90-5.20) Hemoglobin 11.0g/dL (12.0-15.6) Hematocrit 36.6% (35.0-46.0) Mean Corpuscular Volume 83.2fL (81-100) Mean Corpuscular Hemoglobin 25.0pg (27.0-35.0) Mean Corpuscular Hemoglobin Concent 30.1% (32.0-37.0) Red Cell Distribution Width 18.8% (12.3-15.4) Platelet Count 177bil/L (150-400) Sodium Level 146mEq/L (134-144) Potassium Level 5.0mEq/L (3.5-5.2) Chloride Level 109mEq/L (97-108) Carbon Dioxide Level 23mmol/L (18-29) Blood Urea Nitrogen 28mg/dL (8-27) Creatinine 1.23mg/dL (0.57-1.00) Estimat Glomerular Filtration Rate 64mL/min (>59) Glucose Level 105mg/dL (60-99) Calcium Level 8.5mg/dL (8.5-10.1) Microbiology Results Blood cultures negative Discharge Medications Discharge Medications Aspirin (Aspirin) 81 Mg Tablet.dr 81 MG PO DAILY (Reported) Atorvastatin Calcium (Atorvastatin Calcium) 20 Mg Tablet 20 MG PO HS (Reported) Budesonide/Formoterol 160-4.5 mcg Inh (Symbicort 160-4.5 mcg Inh) 120 Puff Inhaler 2 PUFFS INHALATION BID (Reported) Cephalexin (Keflex) 500 Mg Capsule 500 MG PO QID Prescribed by: WALTER MULLIGAN DO Hydrochlorothiazide (Hydrochlorothiazide) 50 Mg Tablet 50 MG PO DAILY (Reported ) Insulin Glargine (Lantus U100 Solostar Insulin Pen) 100 Unit/1 Ml Insuln.pen 65 UNITS SUBQ BID (Reported) Insulin Lispro (HumaLOG U100 Insulin Pen) 100 Unit/1 Ml Insuln.pen UNITS SUBQ TIDAC (Reported) sliding scale insulin Levothyroxine (Levothyroxine) 175 Mcg Tablet 175 MCG PO DAILY (Reported) Lisinopril (Lisinopril) 40 Mg Tablet 20 MG PO DAILY (Reported) Morphine Sulfate ER (MS Contin) 15 Mg Tablet.er 15 MG PO QAM (Reported) Morphine Sulfate ER (MS Contin) 30 Mg Tablet.er 30 MG PO Q12 (Reported) Omeprazole Magnesium (Prilosec Otc) 20 Mg Tablet.dr 20 MG PO DAILY (Reported) As needed Albuterol HFA (Proair HFA) 8.5 Gm Hfa.aer.ad 2 PUFFS IH Q4 PRN PRN For Shortness of Breath (Reported) Hydrocodone-Acetaminophen 5-325 mg (Hydrocodone-Acetaminophen 5-325 mg) 1 Each Tablet 1 EACH PO TID PRN PRN For Pain (Reported) Liraglutide (Victoza 3-Joo) 0.6 Mg/0.1 Ml Pen.injctr 0.3 ML SUBQ DAILY PRN PRN BS>175 (Reported) Promethazine (Promethazine) 25 Mg Tablet 25 MG PO QID PRN PRN For Nausea/ Vomiting (Reported) Followup Plan Discharge Diet: Diabetic, Renal Diet Discharge Activity: No restrictions Patient Instructions Take your antibiotic, Cephalexin, 500mg four times daily until you run out to ensure your cellulitis responds accordingly. Follow up with your primary care doctor in 1-2 weeks for evaluation of your cellulitis, potassium, and kidney function. Please call the Nephrology office at [phone] to schedule a follow up appointment with Dr. Acosta or Dr. Prasad in 1 month. Please call the Surgery office at [phone] to schedule your gallbladder surgery with Dr. Daniel in 2-4 weeks. Follow-up Provider: Mary Sierra PA-C Follow-up with PCP in: 1 week (1-2 weeks) Follow-up in: 4 weeks (Dr. Acosta or Dr. Prasad in a month) Time spent Greater than 30 minutes was spent in preparation of discharge with greater than 50% of that time dedicated to patient counseling and coordination of care. . Attending Statement The patient was seen and examined together with Dr. Mulligan on 12/12/2016 and I agree with the history, exam and plan as outlined in the note above. . copies to: Mary Sierra PA-C, Jeffery S DO Dec 12, 2016 15:12 Andrew Colon MD Dec 12, 2016 17:31 Please call the Surgery office at [phone] to schedule your gallbladder surgery with Dr. Daniel in 2-4 weeks. Follow-up Provider: Mary Sierra PA-C Follow-up with PCP in: 1 week (1-2 weeks) Follow-up in: 4 weeks (Dr. Acosta or Dr. Prasad in a month) Walter Mulligan DO Dec 12, 2016 15:12
== END 2016-12-12 12:25 | disposition home or self-care (01) | DRG 641 ==
LOC: SED 12:09 → PCC 14:30
PROVIDERS: ADMIT Internal Medicine; ATTEND Internal Medicine
PROC: 4A033R1 Measurement of Arterial Saturation, Peripheral, Percutaneous Approach (ICD-10-PCS; principal; 2016-12-09)
DX: E87.5 Hyperkalemia (principal); N17.9 Acute kidney failure, unspecified; L03.311 Cellulitis of abdominal wall; K81.0 Acute cholecystitis; I10 Essential (primary) hypertension; E11.9 Type 2 diabetes mellitus without complications; J45.909 Unspecified asthma, uncomplicated; J44.9 Chronic obstructive pulmonary disease, unspecified; K21.9 Gastro-esophageal reflux disease without esophagitis; E78.5 Hyperlipidemia, unspecified; F17.210 Nicotine dependence, cigarettes, uncomplicated; Z79.4 Long term (current) use of insulin; E86.0 Dehydration

== ENCOUNTER 2016-12-24 00:51 | Day surgery (SDC) | payer OTHER ==
[~2016-12-24] VITALS: Ht 170.2 cm; Wt 94.0 kg
[2016-12-24] VITALS (7 sets, daily range): BP systolic 118–137; BP diastolic 45–64; PULSE 62–74; RESP 12–20; O2SAT 88–98
[~2016-12-24 00:51] MED LIST changes: -AMLO2.5T PO; -Albuterol/Ipratropium NEB; +CEPH-512 PO; -HYDR25TA4 PO; +HYDR50TA3 PO; +INSU100I18 SUBQ; +OMEP20TA24 PO
[2016-12-24] MEDS ORDERED: Propofol 10,000 mCg/mL 20 mL Inj ONE (00:52)
[2016-12-24] MEDS ORDERED: MetoCLOpramide 5 mg/mL 2 mL Inj ONE (00:52)
[2016-12-24] MEDS ORDERED: Glycopyrrolate 0.2 MG/ML 1mL Inj ONE (00:52)
[2016-12-24] MEDS ORDERED: Rocuronium 10 mg/mL 5 mL Inj ONE (00:52)
[2016-12-24] MEDS ORDERED: Succinylcholine Chloride 20 mg/mL 5 mL Inj ONE (00:52)
[2016-12-24] MEDS ORDERED: Neostigmine 1 mg/mL 10 mL Inj ONE (00:52)
[2016-12-24] MEDS ORDERED: Ondansetron 2 mg/mL 2 mL Inj ONE (00:52)
[2016-12-24] MEDS ORDERED: Dexamethasone 4 mg/mL Inj ONE (00:52)
[2016-12-24] MEDS ORDERED: fentaNYL-PF 50 mCg/mL 2 mL Inj ONE (00:52)
[2016-12-24] MEDS ORDERED: Lactated Ringer's 1,000 ML IV ONE ×2 (06:00→16:17)
[2016-12-24] MEDS ORDERED: Albuterol-Ipratropium 3 mL Inhalation Solution NEB ONE (14:35)
--- NOTE | 2016-12-24 14:35 | PCM.HPANE ---
Patient Data Date of Service: Dec 24, 2016 Surgeon Admitting Provider: Attending Provider:Ash Nair MD Primary Care Physician:Mary Sierra PA-C Other Provider:Jim Benito Anesthesia Reason for Visit Choledocholithiasis Ht/WT & BMI Height (Feet): 5 Height (Inches): 7 Weight (Kilograms): 94 Body Mass Index 32.00 Allergies Coded Allergies: TAPE (Verified Allergy, Mild, Rash, 12/24/16) montelukast sodium (Verified Allergy, Mild, Agitation, 12/24/16) oxycodone HCl (Verified Allergy, Mild, Rash,Itching,, 12/24/16) PATIENT TAKES MORPHINE AND HYDROCODONE AT HOME insulin lispro (Verified Allergy, Unknown, reports injection site reactions, 12/24/16) Past Anesthesia History Anesthesia History: Denies:: Anesthesia Reactions, Fam Anesthesia Reaction, Fam Malignant Hypertherm, Malignant Hyperthermia Diabetes History Hx Diabetes?: Yes Type of Diabetes: Type II Glycemic Control: Insulin Dependent Current Bedside Blood Glucose: 81 MRSA MRSA: No Medications Hypertension Medication: Yes Home Meds Incl Beta Renate: No Reported Medications Omeprazole Magnesium (Prilosec Otc)20 Mg Tablet.dr20 Mg PO DAILY 12/09/16 Hydrochlorothiazide 50 Mg Enmgkx43 Mg PO DAILY 12/09/16 Insulin Lispro (HumaLOG U100 Insulin Pen)100 Unit/1 Ml Insuln.pen Units SUBQ TIDAC sliding scale insulin 12/09/16 Liraglutide (Victoza 3-Joo)0.6 Mg/0.1 Ml Pen.injctr0.3 Ml SUBQ DAILY PRN BS>175 11/21/16 Insulin Glargine (Lantus U100 Solostar Insulin Pen)100 Unit/1 Ml Insuln.pen65 Units SUBQ BID 11/21/16 Budesonide/Formoterol 160-4.5 mcg Inh (Symbicort 160-4.5 mcg Inh)120 Puff Inhaler2 Puffs INHALATION BID #10 11/21/16 Atorvastatin Calcium 20 Mg Uqvdfm55 Mg PO HS #30 11/21/16 Levothyroxine 175 Mcg Xmbqjr709 Mcg PO DAILY #30 11/21/16 Lisinopril 40 Mg Csebhq70 Mg PO DAILY 11/21/16 Albuterol HFA (Proair HFA)8.5 Gm Hfa.aer.ad2 Puffs IH Q4 PRN For Shortness of Breath #1 INHALER 09/05/14 Aspirin 81 Mg Tablet.dr81 Mg PO DAILY #1 BOTTLE Ref 0 09/05/14 Morphine Sulfate ER (MS Contin)30 Mg Tablet.er30 Mg PO Q12 09/05/14 Morphine Sulfate ER (MS Contin)15 Mg Tablet.er15 Mg PO QAM 09/05/14 Hydrocodone-Acetaminophen 5-325 mg 1 Each Tablet1 Each PO TID PRN For Pain 09/05/14 Discontinued Reported Medications Promethazine 25 Mg Tigyck29 Mg PO QID PRN For Nausea/Vomiting 11/21/16 Discontinued Scripts Cephalexin (Keflex)500 Mg Zqdlrqb545 Mg PO QID #20 CAPSULE Ref 0 Prov:Shaquille Mulligan DO 12/12/16 History History of ENT Problems?: Yes HEENT History: Positive for:: Cataracts ("the cataracts are just starting") Denies:: Dysphagia Sinus Problem Denture Type: Full- Upper Full- Lower Teeth Condition: No Teeth Hx of Heart Problems?: Yes Cardiovascular History: Positive for:: Congestive Heart Failure Edema Hypertension (HYPERLIPIDEMIA) Denies:: AICD Cardiac Surgery (H/P indicates CABG, Pt states no history of CABG) Chest Pain Coronary Artery Disease Heart Murmur Irregular Heartbeat Pacemaker Thrombophlebitis Valvular Heart Disease Other Cardiac History: no IN Hx of Respiratory Problem?: Yes Respiratory History: Positive for:: Asthma COPD Cough (HX OF RECENT COLD) Dyspnea Pneumonia Use of C-PAP Machine (JOSEFA + SLEEP STUDY 05/16 DOESN'T USE CPAP) Denies:: Chest Surgery Emphysema Hemoptysis Tuberculosis Other Resp Pertinent History: albuterol daily; JOSEFA Hx Neurologic Problems?: No Neurological History: Denies:: Alzheimer's Disease CVA Dementia Dizziness Headaches Parkinson's Disease Seizures Other Neurological Pertinent: no neuropathy or radiculopathy Hx of GI Problems?: Yes Gastrointestinal History: Positive for:: Gastroesphageal Reflux Hx of Problems?: Yes Genitourinary History: Positive for:: Urinary Tract Infection Denies:: HX of Hemodialysis (HX OF ACUTE & CHRONIC RENAL INSUFFICIENCY) Kidney Stones HX of Peritoneal Dialysis: No Female Hx: Denies:: Currently (RHONDA) Endometriosis Pelvic Inflammatory Problems with Breasts? Skin History: Positive for:: History Skin Disorders? (BACK LIPOMA=CURRENT PROBLEM S/P EXC BACK LIPOMA, ?RECURRENCE?) Denies:: Pressure Ulcers Hx Musculoskeletal Problems?: Yes Musculoskeletal History: Positive for:: Back Injury (bulging discs) Denies:: Fibromyalgia Joint Replacement Musculoskeletal Trauma Hx of Psycho/Social Problems?: No Psycho Social History: Denies:: Anxiety Bipolar Disorder Hx Depression Suicide Attempt Hx Surgeries?: Yes (HYSTO, TONSILS, BILIARY DRAIN CURRENTLY) Hx Any Other Health Problems?: Yes Other History: Positive for:: Hospitalization (kidney dialysis) Thyroid Disease Denies:: Cancer Endocrine Disease History Blood Transfusions: Positive for:: Accept Blood Products? Blood Transfusions Denies:: Blood Transfuse Reaction Hx Diabetes: YesBedside Blood Glucose: 81 Hx Alcohol Use: NoHx Substance Use: No Smoking Status: Current Every Day Smoker Have You Smoked inLast 12 mo: YesApprox How Many Cigarettes/day: 6 cigarettes daily Stop/Bang Treated for Sleep Apnea?: Yes Do You Have a CPAP Machine?: Yes JOSEFA Risk Assessment: High Risk, =/>3 Yes JOSEFA Category 1: Yes Risk Assessment Category Category 1A: Patient has history of documented sleep apnea, and HAS NOT received any narcotic, sedative or anesthesia administration during this stay. Category 1B: Patient has history of documented sleep apnea, and HAS received any narcotic , sedative or anesthesia administration during this stay Category 2: Patient has SUSPECTED Obstructive Sleep Apnea, and HAS received any narcotic , sedative or anesthesia administration during this stay. Category 3: Patient has SUSPECTED Obstructive Sleep Apnea and HAS NOT received narcotic, sedative or anesthesia administration during this stay. Category 4: Outpatient in Procedural Areas with known sleep apnea or who screen positive for High Risk via the STOP/BANG questionnaire. Exam Exam Vital Signs Vital Signs Date Time Temp Pulse Resp B/P Pulse Ox O2 Delivery O2 Flow Rate FiO2 12/24/16 13:38 36.6 72 16 128/64 95 Room Air General Appearance: Alert, Oriented X3, Cooperative, No Acute Distress HEENT/AIRWAY: MP 3, Neck Movement (FROM), Mouth Opening (3), Other (tmd<3) Lungs: Wheezes (SIGNIFICANT GROSS DIFFUSE) Heart: Exam Unremarkable, Regular Rate/Rhythm, Normal S1, Normal S2, No Murmurs /Rubs/Gallops Meds/Labs/Diagnostics Bedside Blood Glucose: 81 Plan Impression Patient chart reviewed, patient interviewed and anesthestic plan with risks, benefits, and alternatives discussed, and informed consent obtained. NPO per Anesth. Guidelines: Yes ASA Physical Status: ASA3 Severe Disease Anesthetic Plan: GA Bene/Risks/Altern/Consents: Yes HP Complete Prior to Induction: Yes Nj Galarza MD Dec 24, 2016 14:35
--- NOTE | 2016-12-24 16:24 | ENDO ---
[address] [address] ENDOSCOPY PROCEDURE PATIENT: JOSHUA MENG : 1955 MR#: [id number] ADMIT: 12/24/2016 JOB ID: [id number] DATE: 12/24/2016 PROCEDURE: Endoscopic retrograde cholangiopancreatography. INDICATION: A 61-year-old woman, who presented with acute calculous cholecystitis with severe sepsis in November of 2016. She was unable to undergo a cholecystectomy and subsequently had a cholecystostomy tube placed at an outside hospital. During cholecystostomy tube placement, a cholangiogram was performed which revealed multiple filling defects in the distal CBD. She was referred for ERCP prior to cholecystostomy drain removal and then possible cholecystectomy. Please see Dr. Nj Galarza's anesthesia report for details regarding ASA classification, Mallampati score and medications. INSTRUMENT USED: GetourguideF Q180 V. PROCEDURE DETAILS: 1. After informed consent was obtained, the patient was brought into the GI suite, where she was placed under general anesthesia and then placed in the standard ERCP position. Initial shag truck driver film demonstrated what appeared to be a catheter in the right upper quadrant consistent with patient's history of cholecystostomy tube placement. The side-viewing duodenal scope was then introduced through the bite block and advanced without difficulty to the second portion of the duodenum. The ampulla was identified and appeared to be slightly irritated from possible passage of stones. Using an Olympus CleverCut tome, we initially cannulated the pancreatic duct with the wire.Contrast was not injected into the pancreatic duct. The catheter was then redirected and then with using the wire we were able to cannulate the bile duct. The tome was then advanced and initial cholangiogram demonstrated an approximately a 15 mm common hepatic duct with gradual tapering to approximately 10 mm at the common bile duct. Several filling defects were seen in the distal CBD which ranged in size from 3mm to 5mm. 2. The intrahepatics filled and appeared unremarkable. 3. A moderate-sized sphincterotomy was performed followed by balloon sweep using a 15 mm inject from below balloon. Multiple pigmented stones were extruded. Final occlusion cholangiogram demonstrated no further filling defects and there was rapid flow of contrast and bile noted on final sweep. IMPRESSION: Choledocholithiasis status post endoscopic retrograde cholangiopancreatography with sphincterotomy and balloon sweep. RECOMMENDATIONS: 1. Avoid NSAIDs and anticoagulants for 72 hours. 2. Check LFTs in one week. 3. Followup with Dr. Daniel as scheduled. COMPLICATIONS: Immediate, none. Bleeding none. MTDD
--- NOTE | 2016-12-24 16:29 | DRSVH ---
PROCEDURE: X-RAY E.R.C. BILIARY DUCTS ([id number]) INDICATIONS: CHOLEDOCHOLITHIASIS TECHNIQUE: Fluoroscopic spot films were acquired by the gastroenterology service during ERCP procedu re. COMPARISON: None. FINDINGS: 6 images obtained with a malignant intensifier demonstrate sweeping of the common bile duct . IMPRESSION: Multiple image intensifier images demonstrate opacification of the common bile duct with no definite filling defects to represent retained choledocholithiasis. Dictated by: Maximiliano Golden M.D. on 12/24/2016 at 16:22 Approved by: Maximiliano Golden M.D. on 12/24/2016 at 16:27
--- NOTE | 2016-12-25 12:09 | PCM.ANEP1 ---
Post Anesthesia PACU Phase 1 Assessment Date of Service: Dec 24, 2016 Anesthetic Administered: GA Level of Alertness: Awake, talking ABRAHAM's with Equal Strength: Yes Pain: No Pain Scale Score: 0 Nausea or Vomiting: No CV Function & Hydration Stable: Yes Airway Device: none Oxygen Delivery: Simple Mask Lungs: Wheezes (SIGNIFICANT GROSS DIFFUSE) PACU Phase 2 Assessment Complications: No Follow up Care: N/A Patient Instructions Provided: N/A Nj Galarza MD Dec 25, 2016 12:09
== END 2016-12-24 23:59 | disposition home or self-care (01) ==
LOC: END 00:51
PROVIDERS: ATTEND Internal Medicine Gastroenterology
DX: K80.50 Calculus of bile duct without cholangitis or cholecystitis without obstruction (principal); I10 Essential (primary) hypertension; E11.9 Type 2 diabetes mellitus without complications; F17.210 Nicotine dependence, cigarettes, uncomplicated; Z79.82 Long term (current) use of aspirin; Z79.4 Long term (current) use of insulin; Z79.899 Other long term (current) drug therapy; Z88.5 Allergy status to narcotic agent; Z88.8 Allergy status to other drugs, medicaments and biological substances
CPT/HCPCS: 43262; 43264; 74328; 94664; J0330; J1100; J2250; J2405; J2710; J2765; J3010; J7120; J7620; Q9967

== ENCOUNTER 2017-01-11 08:03 | Day surgery (SDC) | payer OTHER ==
--- NOTE | 2017-01-06 16:11 | PCM.ANEPRE ---
Anesthesia Pre-Op Review Reason for Review: recent hospital admissions Anesthesia Recommendations: Proceed with Procedure Additional Comments 61 y/o female scheduled for cholecystectomy and umbilical hernia repair on . Comorbidities include COPD, IDDM, HTN, chronic kidney disease, JOSEFA. S/p ERCP on 12/24/16 under GETA with 7.0 ETT at [facility] without any apparent anesthesia issus. [facility] admission on 12/09/16 - 12/12/16 for K of 6.0. Admitted to [facility] on 11/21/16 - 11/28/16 for acute cholecystits and JADEN. Lisinopril was decreased from 40 mg/day to 20 mg/day after last hospital visit. Last K level on 12/22/16 was 4.5. All other laboratory values were also wnl. HgbA1C 8.1 Her electrolyte abnormalities appear to have resolved. Proceed with surgery as planned pending evaluation by DOS anesthesiologist. Quentin Stanford MD Jan 06, 2017 16:11
[2017-01-11] VITALS (13 sets, daily range): BP systolic 102–151; BP diastolic 48–87; PULSE 67–86; RESP 9–20; O2SAT 92–99
[~2017-01-11] VITALS: Ht 170.2 cm; Wt 94.0 kg
[~2017-01-11 08:03] MED LIST changes: -CEPH-512 PO; +CeFAZolin 2 Gm/50 mL D5W Duplex Bag IV ONE; +Lactated Ringer's 1,000 ML IV ONE; -PROM25TA14 PO
[2017-01-11] MEDS ORDERED: Phenylephrine/NS 100 mCg/mL 10 mL Syringe IVPUSH ONE (08:04)
[2017-01-11] MEDS ORDERED: Propofol 10,000 mCg/mL 20 mL Inj ONE (08:04)
[2017-01-11] MEDS ORDERED: Glycopyrrolate 0.2 MG/ML 1mL Inj ONE (08:04)
[2017-01-11] MEDS ORDERED: fentaNYL-PF 50 mCg/mL 2 mL Inj ONE (08:04)
[2017-01-11] MEDS ORDERED: Dexamethasone 4 mg/mL Inj ONE (08:04)
[2017-01-11] MEDS ORDERED: Neostigmine 1 mg/mL 10 mL Inj ONE (08:04)
[2017-01-11] MEDS ORDERED: Ondansetron 2 mg/mL 2 mL Inj ONE (08:04)
[2017-01-11] MEDS ORDERED: HYDROmorphone 1 mg/mL Inj ONE (08:04)
[2017-01-11] MEDS ORDERED: Ketamine 10 mg/mL 20 mL Inj ONE (08:04)
[2017-01-11] MEDS ORDERED: Lactated Ringer's 1,000 ML IV ONE ×2 (08:39→08:45)
--- NOTE | 2017-01-11 08:43 | PCM.HPANE ---
Patient Data Date of Service: Jan 11, 2017 Surgeon Admitting Provider: Attending Provider:Benoit Daniel MD Primary Care Physician:Mary Sierra PA-C Other Provider:Jim Benito Anesthesia Reason for Visit Chronic Cholecystitis, Umbilical Hernia Ht/WT & BMI Height (Feet): 5 Height (Inches): 7 Weight (Kilograms): 93.98 Body Mass Index 32.00 Allergies Coded Allergies: TAPE (Verified Allergy, Mild, Rash, 12/24/16) montelukast sodium (Verified Allergy, Mild, Agitation, 12/24/16) oxycodone HCl (Verified Allergy, Mild, Rash,Itching,, 12/24/16) PATIENT TAKES MORPHINE AND HYDROCODONE AT HOME insulin lispro (Verified Allergy, Unknown, reports injection site reactions, 12/24/16) Past Anesthesia History Anesthesia History: Denies:: Abnormal Airway, Anesthesia Reactions, Difficult Intubation, Fam Anesthesia Reaction, Fam Malignant Hypertherm, Malignant Hyperthermia Diabetes History Hx Diabetes?: Yes (type I) Type of Diabetes: Type II Glycemic Control: Insulin Dependent MRSA MRSA: No Medications Blood Thinner: Aspirin Hypertension Medication: Yes Home Meds Incl Beta Renate: No Reported Medications Omeprazole Magnesium (Prilosec Otc)20 Mg Tablet.dr20 Mg PO DAILY 12/09/16 Hydrochlorothiazide 50 Mg Zjeyux95 Mg PO DAILY 12/09/16 Insulin Lispro (HumaLOG U100 Insulin Pen)100 Unit/1 Ml Insuln.pen Units SUBQ TIDAC sliding scale insulin 12/09/16 Liraglutide (Victoza 3-Joo)0.6 Mg/0.1 Ml Pen.injctr0.3 Ml SUBQ DAILY PRN BS>175 11/21/16 Insulin Glargine (Lantus U100 Solostar Insulin Pen)100 Unit/1 Ml Insuln.pen75 Units SUBQ BID 11/21/16 Budesonide/Formoterol 160-4.5 mcg Inh (Symbicort 160-4.5 mcg Inh)120 Puff Inhaler2 Puffs INHALATION BID #10 11/21/16 Atorvastatin Calcium 20 Mg Phmkbe46 Mg PO HS #30 11/21/16 Levothyroxine 175 Mcg Tzaryt683 Mcg PO DAILY #30 11/21/16 Lisinopril 40 Mg Zriodd62 Mg PO DAILY 11/21/16 Albuterol HFA (Proair HFA)8.5 Gm Hfa.aer.ad2 Puffs IH Q4 PRN For Shortness of Breath #1 INHALER 09/05/14 Aspirin 81 Mg Tablet.dr81 Mg PO DAILY #1 BOTTLE Ref 0 09/05/14 Morphine Sulfate ER (MS Contin)30 Mg Tablet.er30 Mg PO Q12 09/05/14 Morphine Sulfate ER (MS Contin)15 Mg Tablet.er15 Mg PO QAM 09/05/14 Hydrocodone-Acetaminophen 5-325 mg 1 Each Tablet1 Each PO TID PRN For Pain 09/05/14 History History of ENT Problems?: No HEENT History: Positive for:: Cataracts ("the cataracts are just starting") Denies:: Abnormal Airway Difficult Intubation Dysphagia Hearing Problem Sinus Problem Denture Type: Full- Upper Full- Lower Teeth Condition: Missing Teeth Hx of Heart Problems?: Yes Cardiovascular History: Positive for:: Edema Hypertension Denies:: AICD Cardiac Surgery (H/P indicates CABG, Pt states no history of CABG) Chest Pain Heart Murmur Irregular Heartbeat Pacemaker Thrombophlebitis Valvular Heart Disease Hx of Respiratory Problem?: Yes Respiratory History: Positive for:: Asthma COPD Cough (HX OF RECENT COLD) Dyspnea Pneumonia Use of C-PAP Machine Use of Inhalers / NEBS Denies:: Chest Surgery Emphysema Hemoptysis Tuberculosis Hx Neurologic Problems?: No Neurological History: Denies:: CVA Headaches Multiple Sclerosis Parkinson's Disease Seizures Hx of GI Problems?: Yes Gastrointestinal History: Positive for:: Gastroesphageal Reflux (Inactive DOS / Pt) Other History/Comment Obese, HH-GERD Hx of Problems?: Yes Genitourinary History: Denies:: HX of Hemodialysis (hx of CKD) Kidney Stones Urinary Tract Infection HX of Peritoneal Dialysis: No Female Hx: Denies:: Currently (hysterectomy) Endometriosis Pelvic Inflammatory Problems with Breasts? Skin History: Positive for:: History Skin Disorders? (gallbladder drain) Denies:: Pressure Ulcers Hx Musculoskeletal Problems?: Yes Musculoskeletal History: Positive for:: Back Injury Denies:: Degenerative Joint Fibromyalgia Joint Replacement Musculoskeletal Trauma Osteoarthritis Rheumatoid Arthritis Systemic Lupus Hx of Psycho/Social Problems?: No Psycho Social History: Denies:: Anxiety Bipolar Disorder Hx Depression Suicide Attempt Hx Surgeries?: Yes (hyst, tonsils, cataracts, ) Hx Any Other Health Problems?: Yes Other History: Positive for:: Hospitalization (kidney dialysis) Thyroid Disease Denies:: Cancer Endocrine Disease History Blood Transfusions: Positive for:: Blood Transfusions (remote hx of ( 30 years ago)) Denies:: Blood Transfuse Reaction Hx Diabetes: Yes (type I) Hx Alcohol Use: NoHx Substance Use: No Smoking Status: Light Tobacco Smoker Have You Smoked inLast 12 mo: Yes (1/4- 1/2 pack day ) Stop/Bang P-Blood Pressure: treated: Yes B- Body Mass Index > 35 kg/m2: No A- Age over 50: Yes N- Neck Large Circumference: No G- Gender Male: No JOSEFA Risk Assessment: High Risk, =/>3 Yes Risk Assessment Category Category 1A: Patient has history of documented sleep apnea, and HAS NOT received any narcotic, sedative or anesthesia administration during this stay. Category 1B: Patient has history of documented sleep apnea, and HAS received any narcotic , sedative or anesthesia administration during this stay Category 2: Patient has SUSPECTED Obstructive Sleep Apnea, and HAS received any narcotic , sedative or anesthesia administration during this stay. Category 3: Patient has SUSPECTED Obstructive Sleep Apnea and HAS NOT received narcotic, sedative or anesthesia administration during this stay. Category 4: Outpatient in Procedural Areas with known sleep apnea or who screen positive for High Risk via the STOP/BANG questionnaire. Exam Exam Vital Signs Vital Signs Date Time Temp Pulse Resp B/P Pulse Ox O2 Delivery O2 Flow Rate FiO2 01/11/17 08:29 36.3 86 20 128/64 93 Room Air General Appearance: Alert, Oriented X3, Cooperative, No Acute Distress HEENT/AIRWAY: MP 3 (Thick neck, Large tongue, Known JOSEFA) Lungs: Normal Air Movement, Coarse, Wheezes Heart: Exam Unremarkable, Regular Rate/Rhythm, Normal S1, Normal S2, No Murmurs /Rubs/Gallops Plan Impression Patient chart reviewed, patient interviewed and anesthestic plan with risks, benefits, and alternatives discussed, and informed consent obtained. NPO per Anesth. Guidelines: Yes ASA Physical Status: ASA3 Severe Disease Anesthetic Plan: GA Bene/Risks/Altern/Consents: Yes HP Complete Prior to Induction: Yes Other Preop Hx reviewed, Anesthesia consult considered. Labs WNL DOS, Pt presentation stable/Hx and patient description. R/B d/w Pt who voices understanding following opportunity to ask and have questions answered. Pt wishes to proceed. Daryl Tavares DO Jan 11, 2017 08:43
[2017-01-11] MEDS ORDERED: Bupivacaine 0.5%/EPI 50 mL Inj INFILTRATE ONE (10:36)
--- NOTE | 2017-01-11 12:46 | PCM.SURGOP ---
Surgical Operative Report Date of Service: Jan 11, 2017 Pre Operative Diagnosis Chronic calculus cholecystitis, incarcerated umbilical hernia Post Operative Diagnosis Same Procedure: Laparoscopic cholecystectomy, umbilical hernia repair Surgeon and Order Runner: Surgeon: Benoit Daniel MD Assistants: Luis Maurice MD PGY-3 Indication for Procedure 61-year-old woman who presented in November with severe sepsis, with acute kidney injury and respiratory failure. She was transferred urgently to [place], intubated, on pressors. She was ultimately diagnosed with acute cholecystitis and cholangitis as her underlying diagnosis, with gas in the gallbladder and biliary tree. A percutaneous cholecystostomy tube was placed. She improved clinically. On physical exam, she also had an incarcerated umbilical hernia. Her cholecystostomy tube continued to put out some purulent fluid. She underwent ERCP with clearance of her common bile duct. After discussion of risks and benefits, she agreed to proceed with laparoscopic cholecystectomy and umbilical hernia repair. Findings: The gallbladder was severely chronically inflamed. There were multiple gallstones. A cholangiogram was not attempted because of her recent ERCP. The umbilical defect measured approximately 1.5 cm, containing incarcerated omental fat. A primary tissue repair was performed. Procedure Details After smooth induction of general endotracheal anesthesia, the patient was placed in the supine position with the right arm tucked. The abdomen was prepped and draped in sterile fashion, and the percutaneous cholecystostomy tube was prepped into the field. A procedural pause was performed according to the SCOAP checklist, and all were found to be in agreement. A vertical supraumbilical incision was made above her hernia. Dissection was carried down with electrocautery until the midline fascia was incised vertically , and the peritoneal cavity entered without difficulty. Pneumoperitoneum was established. Inspection revealed some inflammatory adhesions to the fundus of the gallbladder and her cholecystostomy tube, but the liver was not stuck to the abdominal wall. 3 additional ports were placed under direct visualization. One was placed in the midline epigastrium, and 2 in the right subcostal region. Omental adhesions were taken down from the gallbladder fundus and to the cholecystostomy tube with electrocautery. The cholecystostomy tube was used for retraction. The infundibulum of the gallbladder was exposed and grasped. The peritoneum was incised. The cystic artery was doubly clipped and divided. The critical view was obtained using the infundibular technique. Dissection was quite difficult because of severe chronic inflammation, but ultimately the critical view was obtained. A cholangiogram was not attempted because of her recent ERCP. The cystic duct was doubly clipped on the common bile duct side, and a single clip was placed on the gallbladder side, and the cystic duct was divided. The gallbladder was then dissected out of the gallbladder fossa. Dissection was again difficult because of intrahepatic nature of the gallbladder, and presence of her percutaneous cholecystostomy tube. The tube was not removed until the end of the dissection. The tube was transected outside the body, releasing the pigtail, and the pigtail was withdrawn through the liver. There was a posterior cystic artery branch which was again controlled with 2 hemoclips on the liver bed. The gallbladder was placed into an Endo Catch bag. Laparoscopic dissection was then performed on the umbilical hernia, which contained incarcerated omental fat. This was partially reduced until the final adhesions to the hernia sac could be divided. The gallbladder fossa was inspected and irrigated. Hemostasis was adequate, and there was no bile leak. Pneumoperitoneum was released. A curvilinear infraumbilical incision was made, and the umbilical fascial defect was skeletonized. The Endo Catch bag was brought out through the umbilical defect, and the gallbladder was sent for permanent pathology. The umbilical defect measured 1.5 cm transversely. It was closed transversely using a total of 5 interrupted 0 Nurolon sutures. The umbilicus was resuspended to the fascial closure with a 3-0 Vicryl suture. The fascia of the supraumbilical port site was closed using a simple 0 Nurolon suture. The skin incisions were closed using running 4-0 Monocryl subcuticular stitches. Steri-Strips and sterile dressings were applied. At the end of the case all needle and sponge counts were correct 2. The patient was awakened from anesthesia without difficulty, and taken to the recovery room in satisfactory condition, having tolerated the procedure well. Modifier 22 is being requested for this operation. Presence of her cholecystostomy tube and severe chronic cholecystitis and umbilical hernia resulted in total operative time of greater than 2 hours, which is more than double the average. Complications There were no periprocedural complications identified. Surgical Specimen Removed: Yes Specimen sent to Pathology: Yes Surgical Specimen description: Gallbladder Anesthetic Plan: GA Grafts, Implants: None Output, Estimated Blood Loss: 50 Blood Administration during tobar: No Drains: None Catheters: None copies to: Mary Sierra PA-C, Joshua D MD Jan 11, 2017 12:46
[2017-01-11] MEDS ORDERED: Albuterol-Ipratropium 3 mL Inhalation Solution NEB ONE (13:00)
[2017-01-11] MEDS ORDERED: MetoCLOpramide 5 mg/mL 2 mL Inj IVPUSH PRN (13:05)
[2017-01-11] MEDS ORDERED: Ondansetron 2 mg/mL 2 mL Inj IVPUSH PRN ×2 (13:05→14:00)
[2017-01-11] MEDS ORDERED: HYDROmorphone 1 mg/mL Inj IVPUSH PRN (14:00)
[2017-01-11] MEDS ORDERED: Phenylephrine 10,000 mCg/mL Inj IVPUSH PRN (14:00)
[2017-01-11] MEDS ORDERED: Atropine 0.4 mg/mL Inj IVPUSH PRN (14:00)
[2017-01-11] MEDS ORDERED: Lactated Ringer's 1,000 ML IV SCH (14:00)
[2017-01-11] MEDS ORDERED: EPHEDrine Sulfate 50 mg/mL Inj IVPUSH PRN (14:00)
[2017-01-11] MEDS ORDERED: Lactated Ringer's 500 ML IV PRN (14:00)
[2017-01-11] MEDS ORDERED: fentaNYL-PF 50 mCg/mL 2 mL Inj IVPUSH PRN (14:00)
[2017-01-11] MEDS ORDERED: Dexamethasone 4 mg/mL Inj IVPUSH PRN (14:00)
[2017-01-11] MEDS ORDERED: Labetalol 5 mg/mL 4 mL Inj IV PRN (14:00)
--- NOTE | 2017-01-11 14:04 | PCM.ANEP1 ---
Post Anesthesia PACU Phase 1 Assessment Date of Service: Jan 11, 2017 Vital Signs Vital Signs Date Time Temp Pulse Resp B/P Pulse Ox O2 Delivery O2 Flow Rate FiO2 01/11/17 13:30 76 10 121/48 97 Simple Mask 10 01/11/17 13:20 73 9 120/55 98 Simple Mask 10 01/11/17 13:15 75 9 117/65 98 Simple Mask 10 01/11/17 13:10 72 9 132/68 98 Simple Mask 10 01/11/17 13:05 67 10 117/53 98 Simple Mask 10 01/11/17 13:02 36.7 68 9 144/64 99 Simple Mask 10 01/11/17 08:29 36.3 86 20 128/64 93 Room Air Anesthetic Administered: GA Level of Alertness: Awake, talking ABRAHAM's with Equal Strength: Yes Pain: No Nausea or Vomiting: No CV Function & Hydration Stable: Yes Airway Device: Oralpharangeal Airway Lungs: Normal Air Movement, Coarse, Wheezes PACU Phase 2 Assessment Patient Instructions Provided: N/A Daryl Tavares DO Jan 11, 2017 14:04
[2017-01-11] MEDS ORDERED: Insulin Human REGular 300 Unit/3 mL Inj SUBQ SCH (14:30)
--- NOTE | 2017-01-11 15:17 | NUR ---
Post op Pt arrived to floor ~ 1430. 3L o2 in place sats 93%; Bilateral upper lungs and airway is wheezy to auscultation. Bilateral lower lungs decreased but clear. Abd incision 5 lap sites closed with derma meza and drain site closed with 4x4 and bio occlusive. c/o pain 10/14 but states she does not want anything for pain at this time. Educated pt on shoulder pain from air escaping. RT in room and instructing on IS. brought in CPAP for Noc. Pt has dentures and educated on importance of keeping them in the cup if they are not in her mouth. Care conts.
[2017-01-11] MEDS: HYDROcodone-APAP 5-325 mg Tablet PO PRN (15:38)
[2017-01-11] MEDS ORDERED: LIRAGLUTIDE SUBQ PRN (16:10)
[2017-01-11] MEDS ORDERED: Albuterol HFA 60 Puff 8 Gm Inhaler INHALATION PRN (16:10)
[2017-01-11] MEDS: Dextrose 5% Lactated Ringer's 1,000 ML IV SCH ×2 (16:14→21:05)
[2017-01-11] MEDS ORDERED: Albuterol 2.5 mg/3 mL Inhalation Solution NEB PRN (16:25)
[2017-01-11] MEDS ORDERED: HYDROcodone-APAP 5-325 mg Tablet PO PRN (16:30)
[2017-01-11] MEDS: Insulin LISPRO 300 Unit/3 mL Inj SUBQ SCH (17:30)
--- NOTE | 2017-01-11 17:57 | NUR ---
Insulin Verified with pt that she does take humalog at home and has a sliding scale that she uses. MD paged regarding this. Orders to stop Humulin regular and use Humalog with pts home sliding scale. OT at dinner was 235. 20 units of humalog given per orders. All meds on med rec have been verified with pt and Dr. Maurice and Ross Loredo. Care conts.
[2017-01-11] MEDS ORDERED: Budesonide-Formot 160-4.5 mCg 6.9 Gm Inhaler INHALATION SCH (20:30)
[2017-01-11] MEDS ORDERED: Morphine ER 30 mg (MS Contin) Tablet PO SCH (21:00)
[2017-01-11] MEDS: Fluticasone-Salmeterol 500-50 Inhaler INHALATION SCH (21:50)
[2017-01-11] MEDS: Insulin GLARgine 100 Unit/mL Syringe SUBQ SCH (22:02)
[2017-01-12 00:21] VITALS: PULSE 64; RESP 18; O2SAT 93
[2017-01-12] MEDS: Dextrose 5% Lactated Ringer's 1,000 ML IV SCH (05:05)
[2017-01-12 05:44] VITALS: BP 137/80; PULSE 74; RESP 16; O2SAT 90
--- NOTE | 2017-01-12 05:53 | NUR ---
Pain Patient states that her pain is minimal and that she doesn't feel she needs pain medication at this time. Patient resting with Cpap on and O2 with 1.5L at 94%. Patient up independent to bathroom standby assist. Patient's incision sites look well approximated. Vitals Stable. Care continues.
[2017-01-12] MEDS: HYDROcodone-APAP 5-325 mg Tablet PO PRN (06:19)
[2017-01-12] MEDS ORDERED: Pantoprazole 20 mg ER24 Tablet PO SCH (06:30)
--- NOTE | 2017-01-12 06:49 | PCM.PNSURG ---
Subjective Date of Service: Jan 12, 2017 Date of Service: Jan 12, 2017 Visit Information: Reason for Visit Chronic Cholecystitis, Umbilical Hernia Surgery/Surgery Date LAP VELMA/UMBILICAL HERNIA REPAIR 01/11/17 Post-Op Day # 1 Date of Admission: Hospital Day # Subjective: Denies significant pain, nausea, vomiting, pain, & bowel movement. Tolerating oral analgesics, a diabetic diet, & voiding out of bed to bathroom with assist. Feeling better like to go home. Postop General: No Complaints Gastrointestinal: Good Appetite, Tolerating Oral Feedings, No N/V Pain Management: PO, Good Pain Control, No or Minimal Pain Postop Activity: Ambulate with Assist Objective Vital Sign- Last 8 Hours Date Time Temp Pulse Resp B/P Pulse Ox O2 Delivery O2 Flow Rate FiO2 01/12/17 05:44 36.3 74 16 137/80 90 CPAP 01/12/17 02:50 Supplement Oxygen 01/12/17 00:23 3.00 01/12/17 00:21 64 18 93 CPAP 3.00 Intake and Output- Last 8 Hour 01/12/17 Cumulative From/Thru 07:00 01/06/17 12:46 - 01/12/17 02:50 Intake Total 1940 ml Output Total 800 ml Balance 1140 ml Intake Oral 640 ml IV Total 1300 ml Output Urine Total 700 ml Estimated Blood Loss 100 ml General: Alert, Oriented X3, Cooperative, No Acute Distress Lungs: Clear to Auscultation Heart: Exam Unremarkable Abdomen: Soft, Appropriately tender, Non-distended Extremities: Thigh&Calf Soft/Nontender Neuro: Normal Speech Result Diagram: 01/11/17 1031 Assessment & Plan Impression Primary Diagnoses: 1. Chronic calculus cholecystitis & incarcerated umbilical hernia 2. Status post laparoscopic cholecystectomy & umbilical hernia repair Other Medical & Surgical History Morbid obesity Hyperlipidemia Lumbar degenerative disc disease Peripheral venous insufficiency GERD Hypothyroidism Chronic rhinosinusitis Obstructive sleep apnea COPD Degenerative disc disease cervical Diabetes mellitus Thyroid nodule Fatty liver Tobacco use Hypertension Migraine syndrome Restless leg syndrome CHF Status post right toe surgery History of excision recurrent right back lipoma History of Left GSV RF ablation History of hysterectomy Problems: Plan 1. Discharge home today if respiratory therapy assessment agrees that home oxygen is adequate for disposition. 2. Patient verbalized understanding Dr. Daniel instructions for postoperative care, medication & CPAP use, follow-up, & when to seek immediate medical attention. Pain Management: Baseline home MS Contin 30 mg by mouth twice a day & 15 mg every morning and hydrocodone/acetaminophen by mouth 5 mg 1-2 tabs by mouth every 4-6 hours VTE Prophylaxis: SCDs copies to: Mary Sierra PA-C, Scott PA-C Jan 12, 2017 06:49
--- NOTE | 2017-01-12 07:11 | PCM.DISURG ---
Surgical Discharge Instruction Date of Service Jan 12, 2017 Dates of Hospitalization Date of Hospital Admission 01/21/2017 Providers Admitting Physician: Primary Care Physician: Mary Sierra PA-C Attending Physician: Benoit Daniel MD Discharge Diagnosis Discharge Diagnosis Primary Diagnoses: 1. Chronic calculus cholecystitis & incarcerated umbilical hernia 2. Status post laparoscopic cholecystectomy & umbilical hernia repair Other Medical & Surgical History Morbid obesity Hyperlipidemia Lumbar degenerative disc disease Peripheral venous insufficiency GERD Hypothyroidism Chronic rhinosinusitis Obstructive sleep apnea COPD Degenerative disc disease cervical Diabetes mellitus Thyroid nodule Fatty liver Tobacco use Hypertension Migraine syndrome Restless leg syndrome CHF Status post right toe surgery History of excision recurrent right back lipoma History of Left GSV RF ablation History of hysterectomy Post Operative diagnosis Same Diet Discharge Diet: Low fat Activity Discharge Activity-General: Try not to overdue, Balance rest and activity, No lifting >15 pounds for 2 weeks Dressing and Incisional Care Dressing Care: Allow Steri Stripes to fall off, Remove dressing in (with gauze in 2 days and chage as needed if draining.), Other (Leave glued incisions alone until it falls off on it's own) Hygiene: May shower, DO NOT soak incision under water Follow Up Plan Follow-up Provider (F9): Mason Alba PA-C Follow-up appointment: Weeks (2) Call your provider for: Fever, Chills, Shortness of breath, Increasing abdominal pain, Nausea, Vomiting, Wound redness, Increasing wound pain, Warmth to touch, Discharge @ incision, pus discharge Ross Loredo PA-C Jan 12, 2017 07:11
--- NOTE | 2017-01-12 07:14 | PCM.DC.SUR ---
Discharge Summary Date of Service: Jan 12, 2017 Date of Hospital Admission: 01/11/2017 Date of Operation(s): 01/11/2017 Date of Discharge: 01/12/2017 Diagnosis at Time of Discharge 1. Chronic calculus cholecystitis & incarcerated umbilical hernia 2. Status post laparoscopic cholecystectomy & umbilical hernia repair 3. COPD Other Medical & Surgical History Morbid obesity Hyperlipidemia Lumbar degenerative disc disease Peripheral venous insufficiency GERD Hypothyroidism Chronic rhinosinusitis Obstructive sleep apnea Degenerative disc disease cervical Diabetes mellitus Thyroid nodule Fatty liver Tobacco use Hypertension Migraine syndrome Restless leg syndrome CHF Status post right toe surgery History of excision recurrent right back lipoma History of Left GSV RF ablation History of hysterectomy Problems: Operation Status post laparoscopic cholecystectomy & umbilical hernia repair Brief History and Physical: Gifty returned to surgery clinic in follow-up. Dr. Daniel had seen her multiple times in the hospital. In November, she was admitted with septic shock and transferred to [facility] in [place]. During that hospitalization, she underwent cholecystostomy tube placement on 11/21/2016. She had acute kidney injury and other signs of severe illness, was intubated on pressors, but ultimately recovered. In the hospital setting recently, she was seen again by Dr. Daniel who recommended to have interval cholecystectomy because of her indwelling cholecystostomy tube. The tube is functional, and drained a small amount of bilious fluid daily. She has undergone ERCP with clearance of her common bile duct. She feels otherwise well with no abdominal pain, no nausea, no fevers or chills. She has no chest pain or shortness of breath. The patient also has an umbilical hernia. She is urinating normally and would like to proceed with the recommended laparoscopic cholecystectomy & umbilical hernia repair. Hospital Course: The patient was admitted with history, presentation, & workup consistent with chronic calculus cholecystitis & umbilical hernia; and underwent the above- mentioned operation without significant complication. See operative report for details of the procedure. Patient's postsurgical recovery was as expected with her comorbidities and otherwise uneventful. The patient was stable for discharge on postoperative day #1 after respiratory therapy evaluation for disposition with current home oxygen and CPAP. She is on baseline chronic pain medications managed by her PCP. The time of discharge the patient was voiding without difficulty, tolerating a diabetic diet without nausea or vomiting, pain controlled by oral analgesics only, and ambulating with assistance. Wounds were clean, dry, and intact without signs of significant infection, inflammation , and/or hematoma. We discussed and the patient verbalizes understanding all of the relevant postoperative care and medication and instructions, follow-up, and we will seek immediate medical attention. Dr. Daniel wrote for postoperative pain and constipation medications. The patient will follow up in the physician loan officer assistant clinic in 2 weeks. Disposition: Discharge home in stable condition on postoperative day #1 Follow-up Plan: Follow-up in outpatient general surgery physician loan officer assistant clinic in 2 weeks. Albuterol HFA (Proair HFA) 8.5 Gm Hfa.aer.ad 2 PUFFS IH Q4 PRN PRN For Shortness of Breath (Reported) Aspirin (Aspirin) 81 Mg Tablet.dr 81 MG PO DAILY (Reported) Atorvastatin Calcium (Atorvastatin Calcium) 20 Mg Tablet 20 MG PO HS (Reported) Budesonide/Formoterol 160-4.5 mcg Inh (Symbicort 160-4.5 mcg Inh) 120 Puff Inhaler 2 PUFFS INHALATION BID (Reported) Hydrochlorothiazide (Hydrochlorothiazide) 50 Mg Tablet 50 MG PO DAILY (Reported ) Hydrocodone-Acetaminophen 5-325 mg (Hydrocodone-Acetaminophen 5-325 mg) 1 Each Tablet 1 EACH PO TID PRN PRN For Pain (Reported) Insulin Glargine (Lantus U100 Solostar Insulin Pen) 100 Unit/1 Ml Insuln.pen 75 UNITS SUBQ BID (Reported) Insulin Lispro (HumaLOG U100 Insulin Pen) 100 Unit/1 Ml Insuln.pen UNITS SUBQ TIDAC (Reported) sliding scale insulin Levothyroxine (Levothyroxine) 175 Mcg Tablet 175 MCG PO DAILY (Reported) Liraglutide (Victoza 3-Joo) 0.6 Mg/0.1 Ml Pen.injctr 0.3 ML SUBQ DAILY PRN PRN BS>175 (Reported) Lisinopril (Lisinopril) 40 Mg Tablet 20 MG PO DAILY (Reported) Morphine Sulfate ER (MS Contin) 15 Mg Tablet.er 15 MG PO QAM (Reported) Morphine Sulfate ER (MS Contin) 30 Mg Tablet.er 30 MG PO Q12 (Reported) Omeprazole Magnesium (Prilosec Otc) 20 Mg Tablet.dr 20 MG PO DAILY (Reported) Discharge Medications: More of her home baseline short-acting narcotic analgesics & new constipation medications per Dr. Daniel copies to: Mary Sierra PA-C, Scott PA-C Jan 12, 2017 07:14
[2017-01-12 07:51] VITALS: BP 142/81; PULSE 72; RESP 16; O2SAT 98
[2017-01-12] MEDS: Fluticasone-Salmeterol 500-50 Inhaler INHALATION SCH (07:52)
[2017-01-12] MEDS: Insulin LISPRO 300 Unit/3 mL Inj SUBQ SCH (07:54)
[2017-01-12] MEDS ORDERED: Non-Formulary Medication (Levothyroxine 175 MCG) PO SCH (08:30)
[2017-01-12] MEDS ORDERED: Morphine ER 15 mg (MS Contin) Tablet PO SCH (08:30)
--- NOTE | 2017-01-12 08:53 | NUR ---
O2 O2 on RA with ambulation 87 %. On O2 at 2 LPM- 98 %. Patient has home O2 at home. RT to assess.
--- NOTE | 2017-01-12 09:14 | PROG NOTE ---
[address] [address] PROGRESS NOTE PATIENT: JOSHUA MENG : 1955 MR#: [id number] ADMIT: 01/11/2017 JOB ID: [id number] DATE: 01/12/2017 SUBJECTIVE: The patient is seen in followup. She is doing very well. She has very little pain and declined pain medications earlier. She has no nausea. She is tolerating her diet. OBJECTIVE: Temperature 37.0, pulse 72, blood pressure 142/81, saturation 98% on room air. General: She is sitting up in bed, in no acute distress. Chest is coarse with some scattered wheezes. Heart: Regular rate and rhythm. No murmurs. Abdomen is soft, nontender, nondistended. Her incisions are clean with no erythema. ASSESSMENT AND PLAN: A 61-year-old woman with severe chronic cholecystitis status post laparoscopic cholecystectomy, and repair of umbilical hernia. She is doing very well clinically. She will be discharged to home today. She will followup in [facility] in 2-3 weeks for a wound check. She is advised to not lift anything greater than 15 pounds for the next four weeks and to minimize abdominal straining.
[2017-01-12 09:15] VITALS: PULSE 84
--- NOTE | 2017-01-12 09:30 | NUR ---
Called to pt.room by nurse. Pt. states she is on O2 at home prn. She is able to monitor her oxygenation via pulse oximeter. Pt. on 2 lpm NC. Sats 96%. Pt. placed on RA. Sats 94. sitting EOB sats 93%. Ambulating to rest room sats 90%. Pt. recovers after sitting to 94% on RA. With Ambulation pt. sats 87%. Pt states she does not need to go home with oxygen as it is already set up with [facility].
[2017-01-12] MEDS: Insulin GLARgine 100 Unit/mL Syringe SUBQ SCH (10:10)
--- NOTE | 2017-01-12 11:35 | NUR ---
DISCHARGE Patient rated her pain as 4/10 at this time. Scheduled Morphine has been adequate for pain control. Tolerating liquids PO and her diet well. Denies nausea/SOB. Ambulating independently in the room. Gait is steady. Voiding without any problems. IV saline lock d/cd. Discharge instructions, care note and prescription was given to the patient and she verbalized understanding. Discharged to home with her friend and all her personal belongings. (Copy of D/C is in the chart).
--- NOTE | 2017-01-13 16:53 | PATH ---
SURGICAL PATHOLOGY Attending Physician:Yusuf Mendez CASE STATUS: Signed Out PATIENT NAME: JOSHUA MENG PID: [id number] : 1955 DATE COLLECTED:01/11/2017 00:00 SPECIMEN: Gallbladder CLINICAL HISTORY: CHRONIC CHOLECYSTITIS 1). GALLBLADDER FINAL DIAGNOSIS: 1.GALLBLADDER, LAPAROSCOPIC CHOLECYSTECTOMY: ACUTE AND CHRONIC CHOLECYSTITIS AND CHOLELITHIASIS. STONES OBSTRUCT THE CYSTIC DUCT AT GROSS EXAMINATION. ICD10 K80.7 GROSS DESCRIPTION: The specimen is received in formalin, labeled with the patient's name, sublabeled as gallbladder, and consists of an opened gallbladder (length-6.3 cm, diameter-2.8 cm) with a partially obstructed cystic duct. No lymph nodes are identified. The serosa is schilling-maroon smooth and shiny. The lumen contains multiple brown-black smooth shiny solid firm multifaceted calculi (5.2 x 3.6 x 2.2 cm in aggregate, ranging 0.6 x 0.5 x 0.5 cm-2.7 x 1.8 x 1.8 cm) with clear colorless crystalline cut surfaces. The mucosa is corona-red smooth and flat. The wall is up to 0.2 cm thick. No nodules, masses or lesions are identified. Section code: (A) gallbladder, cystic duct resection margin, 3 serial sections from the body; (B) 2 longitudinal sections from the fundus. 01/12/17 JM MICRO DESCRIPTION: See diagnosis. ICD-9 CODES: CPT CODES: 1: 34665 Electronically Signed Out Priscilla Barba MD [facility] [address], [place] [address] Technical component performed at [facility], [facility] [address], [place], [address]
== END 2017-01-12 11:07 | disposition home or self-care (01) ==
LOC: SAS 08:03 → OSC 14:34 → SAS 01-12 11:07
PROVIDERS: ATTEND Student in an Organized Health Care Education/Training Program
DX: K42.0 Umbilical hernia with obstruction, without gangrene (principal); K80.10 Calculus of gallbladder with chronic cholecystitis without obstruction; I10 Essential (primary) hypertension; I50.9 Heart failure, unspecified; E78.5 Hyperlipidemia, unspecified; E03.9 Hypothyroidism, unspecified; E11.9 Type 2 diabetes mellitus without complications; M51.36 Other intervertebral disc degeneration, lumbar region; K21.9 Gastro-esophageal reflux disease without esophagitis; G47.33 Obstructive sleep apnea (adult) (pediatric); J45.909 Unspecified asthma, uncomplicated; J44.9 Chronic obstructive pulmonary disease, unspecified; F17.210 Nicotine dependence, cigarettes, uncomplicated; Z86.69 Personal history of other diseases of the nervous system and sense organs; Z90.710 Acquired absence of both cervix and uterus; Z79.82 Long term (current) use of aspirin; Z79.4 Long term (current) use of insulin
CPT/HCPCS: 36415; 47562; 49653; 80048; 94640; 94799; J0690; J1100; J1170; J1815; J2250; J2370; J2405; J2710; J3010; J7120